=== PATIENT | female | born 1930 | race Caucasian/White ===

== ENCOUNTER 2016-06-29 17:59 | Inpatient (IN) | payer MEDICARE, BC ==
[~2016-06-29] VITALS: Ht 152.4 cm; Wt 73.5 kg
--- NOTE | 2016-06-29 18:00 | NUR ---
BIB RA FOR FEVER AND RIGHT LOWER LOBE INFILTRATION, PATIENT IS UNABLE TO AMBULATE, NO CHEST PAIN, NO RESPIRATORY DISTRESS, MD AT BEDSIDE UPON ARRIVAL, PATIENT IS A/O X3, WILL CONTINUE TO MONITOR CLOSELY.
[2016-06-29] MEDS ORDERED: IV NS 0.9% 500 ML BAG IV ONE (18:30)
[2016-06-29] MEDS ORDERED: IV SET PRIMARY 1 EA INFUS.SET MC ONE (18:41)
[2016-06-29] MEDS ORDERED: IV NS 0.9% 500 ML IV ONE (18:41)
[2016-06-29 18:44] LABS: BASOPHILS % (AUTO) 0.1 % (0.0-2.0); EOSINOPHILS # (AUTO) 0.3 /CMM (0.0-0.7); EOSINOPHILS % (AUTO) 2.9 % (0.0-6.0); HEMATOCRIT 37 % (33-45); HEMOGLOBIN 12.4 g/dL (11.5-14.8); LYMPHOCYTES # (AUTO) 0.8 /CMM (0.8-4.8); LYMPHOCYTES % (AUTO) 6.9 % (20.0-44.0); MEAN CORPUSCULAR HEMOGLOBIN 32 PG (26.0-33.0); MEAN CORPUSCULAR HGB CONC 33 g/dl (31.0-36.0); MEAN CORPUSCULAR VOLUME 94 fL (82-100); MONOCYTES # (AUTO) 1.4 /CMM (0.1-1.30); MONOCYTES % (AUTO) 12.8 % (2.0-12.0); NEUTROPHILS # (AUTO) 8.5 /CMM (1.8-8.9); NEUTROPHILS % (AUTO) 77.3 % (43.0-81.0); PLATELET COUNT (AUTO) 389 /CMM (150-450); RDW COEFFICIENT OF VARIATION 13.4 (11.5-15.0); RED BLOOD CELL COUNT(AUTO) 3.94 MIL/uL (4.0-5.2)
[2016-06-29] MEDS ORDERED: ALEN70TA3 GT (18:51)
[2016-06-29] MEDS ORDERED: MAG30ORA GT (18:51)
[2016-06-29] MEDS ORDERED: MULT-659 GT (18:51)
[2016-06-29] MEDS ORDERED: SIMV20TA6 GT (18:51)
[2016-06-29] MEDS ORDERED: OMEP10SU GT (18:51)
[2016-06-29] MEDS ORDERED: GEMF600T GT (18:51)
[2016-06-29] MEDS ORDERED: ACET650S26 GT (18:51)
[2016-06-29] MEDS ORDERED: AMIN30LI4 GT (18:51)
[2016-06-29] MEDS ORDERED: VENL37.55 GT (18:51)
[2016-06-29] MEDS ORDERED: TEMA15CA GT (18:51)
[2016-06-29] MEDS ORDERED: NUT.237L30 GT (18:51)
[2016-06-29] MEDS ORDERED: ONDA4TAB5 GT (18:51)
[2016-06-29] MEDS ORDERED: SODI1TAB3 GT (18:51)
[2016-06-29] MEDS ORDERED: POLY17PO4 GT (18:51)
[2016-06-29] MEDS ORDERED: ATEN25TA GT (18:51)
[2016-06-29] MEDS ORDERED: AMLO10TA2 GT (18:51)
[2016-06-29] MEDS ORDERED: ACET1TAB12 GT (18:51)
[2016-06-29 18:55] LABS: CALCIUM, SERUM 9.1 mg/dL (8.5-10.1); CREATININE 1.1 mg/dL (0.6-1.3); POTASSIUM 4.4 mmol/L (3.5-5.1)
--- NOTE | 2016-06-29 18:57 | NUR ---
CALLED NURSING SUP. FOR TELE BED
[2016-06-29 19:03] LABS: INR 0.96 (0.87-1.13); PROTHROMBIN TIME 10.3 SECS (9.5-12.7); TROPONIN I 0.024 ng/mL (0.00-0.056)
[2016-06-29 19:04] LABS: LACTIC ACID 0.7 mmol/L (0.4-2.0)
--- NOTE | 2016-06-29 19:06 | NUR ---
RECEIVED REPORT FROM DEEPTHI LU FOR CONTINUE OF CARE.
[2016-06-29 19:10] LABS: ALBUMIN 1.6 g/dL (3.4-5.0); BILIRUBIN,DIRECT 0.1 mg/dL (0.0-0.2); BILIRUBIN,TOTAL 0.3 mg/dL (0.2-1.0); TOTAL PROTEIN, SERUM 7.5 g/dL (6.4-8.2)
--- NOTE | 2016-06-29 19:10 | NUR ---
PT NTOED WITH GTUBE, INTACT AND PATENT. NO S/S INFECTION. NO RESIDUALS NOTED.
[2016-06-29] MEDS ORDERED: ACETAMINOPHEN ES 500 MG TABLET ONE (19:21)
[2016-06-29] MEDS ORDERED: ACETAMINOPHEN ES 500 MG TABLET GT ONE (19:30)
[2016-06-29] MEDS ORDERED: LEVOFLOXACIN 750 MG /D5W 150ML 150 ML IV ONE ×2 (19:30→19:58)
[2016-06-29] MEDS ORDERED: PIPERACILLIN /TAZOBACTAM 3.375 G in IV D5W 50 ML IV ONE (19:30)
[2016-06-29] MEDS ORDERED: ACETAMINOPHEN ES 500 MG TABLET PO ONE (19:30)
--- NOTE | 2016-06-29 19:33 | NUR ---
URINE COLLECTED. CALLED LAB FOR ULTRASONIC CLEANER/
[2016-06-29] MEDS ORDERED: ACETAMINOPHEN 650 MG/20.3 ML UDC ONE (19:35)
[2016-06-29] MEDS ORDERED: IV SET PRIMARY PUMP SET 1 EA INFUS.SET MC ONE ×2 (19:40→19:58)
[2016-06-29] MEDS ORDERED: PIPERACILLIN /TAZOBACTAM 3.375 G VIAL IV ONE (19:40)
[2016-06-29] MEDS ORDERED: IV D5W 50 ML IV ONE (19:40)
--- NOTE | 2016-06-29 19:51 | NUR ---
PT ASSIGNED TO [facility] 312-2
[2016-06-29] MEDS ORDERED: ACETAMINOPHEN SUSP 80 MG/0.8 ML BOTTLE GT ONE (20:00)
--- NOTE | 2016-06-29 20:00 | NUR ---
REPROT GIVEN TO DEEPTHI TONG FOR 312-2
--- NOTE | 2016-06-29 20:21 | NUR ---
PT TRANSFERED PER ACLS PROTOCOL.
--- NOTE | 2016-06-29 20:21 | NUR ---
TELE/RN RECEIVE PATIENT FROM [facility]. PATIENT IS AWAKE, ALERT, APPEAR COMFORTABLE, NO DISTRESS NOTED. UNABLE TO OBTAIN ADMISSION INFORMATIONS FROM THE PATIENT THE PATIENT DOES NOT ANSWER TO QUESTIONS. MADE COMFORTABLE IN BED, SKIN ASSESSMENT DONE, PHOTOS TAKEN. WILL MONITOR. FALL PRECAUTION.
[2016-06-29 20:30] VITALS: BP 144/64
[2016-06-29] MEDS ORDERED: FEE PK DOSING 1 MIN EA MC ONE (20:57)
[2016-06-29 21:09] LABS: APPEARANCE,URINE SL CLOUDY (CLEAR); BILIRUBIN,URINE NEGATIVE (NEGATIVE); BLOOD, URINE 1+ Ery/uL (NEGATIVE); COLOR,URINE YELLOW (YELLOW); KETONES,URINE NEGATIVE (NEGATIVE); LEUKOCYTE ESTERASE ,URINE NEGATIVE (NEGATIVE); NITRITE, URINE NEGATIVE (NEGATIVE); PROTEIN,URINE 3+ mg/dl (NEGATIVE); UGLUCOSE NEGATIVE (NEGATIVE); UROBILINOGEN,URINE 0.2 EU/dL (0.2)
[2016-06-29 21:24] LABS: ADD URINE CULTURE YES; BACTERIA,URINE Many /HPF (None Seen); SQUAMOUS EPITHELIAL CELL,UR Few /HPF (None Seen); WBC,URINE 0-2 /HPF (0-3)
[2016-06-29] MEDS ORDERED: GEMFIBROZIL 600 MG TABLET GT SCH (22:00)
[2016-06-29] MEDS ORDERED: SECONDARY IV SET 1 EA INFUS.SET MC ONE (22:05)
[2016-06-29] MEDS ORDERED: IV NS 0.9% 250 ML IV ONE (22:05)
[2016-06-29] MEDS ORDERED: SIMVASTATIN 20 MG TABLET ONE (22:14)
[2016-06-29] MEDS: VANCOMYCIN 0.75 GM in IV D5W 250 ML IV SCH (22:15)
[2016-06-29] MEDS: SIMVASTATIN 20 MG TABLET GT SCH (22:20)
[2016-06-29] MEDS ORDERED: GLYTROL 1,000 ML BAG ONE (22:53)
[2016-06-30] VITALS: BP 157/72
--- NOTE | 2016-06-30 | NUR ---
TELE/RN PATIENT IS SLEEPING, AROUSABLE, APPEAR COMFORTABLE, NO SIGNS OF DISTRESS NOTED, CALL LIGHT IN REACH. WILL CONTINUE TO MONITOR.
[2016-06-30 04:00] VITALS: BP 135/58
[2016-06-30] MEDS ORDERED: SECONDARY IV SET 1 EA INFUS.SET MC ONE (05:09)
[2016-06-30] MEDS: PIPERACILLIN /TAZOBACTAM 3.375 G in IV D5W 50 ML IV SCH ×3 (05:38→17:22)
--- NOTE | 2016-06-30 06:10 | NUR ---
TELE/RN PATIENT STILL SLEEPING, AROUSABLE, NO DISTRESS NOTED. ALL NEEDS ATTENDED AT THIS TIME. WILL CONTINUE TO MONITOR.
[2016-06-30 06:57] VITALS: BP 153/64
[2016-06-30 06:59] LABS: BASOPHILS % (AUTO) 0.3 % (0.0-2.0); EOSINOPHILS # (AUTO) 0.6 /CMM (0.0-0.7); EOSINOPHILS % (AUTO) 6.1 % (0.0-6.0); HEMATOCRIT 34 % (33-45); HEMOGLOBIN 11.3 g/dL (11.5-14.8); LYMPHOCYTES # (AUTO) 0.7 /CMM (0.8-4.8); LYMPHOCYTES % (AUTO) 6.8 % (20.0-44.0); MEAN CORPUSCULAR HEMOGLOBIN 32 PG (26.0-33.0); MEAN CORPUSCULAR HGB CONC 34 g/dl (31.0-36.0); MEAN CORPUSCULAR VOLUME 96 fL (82-100); MONOCYTES # (AUTO) 1.2 /CMM (0.1-1.30); NEUTROPHILS # (AUTO) 7.4 /CMM (1.8-8.9); NEUTROPHILS % (AUTO) 74.8 % (43.0-81.0); PLATELET COUNT (AUTO) 364 /CMM (150-450); RDW COEFFICIENT OF VARIATION 13.4 (11.5-15.0); RED BLOOD CELL COUNT(AUTO) 3.51 MIL/uL (4.0-5.2); WHITE BLOOD COUNT (AUTO) 9.8 K/uL (4.3-11.0)
[2016-06-30 07:13] LABS: BILIRUBIN,TOTAL 0.2 mg/dL (0.2-1.0); CALCIUM, SERUM 8.2 mg/dL (8.5-10.1); MAGNESIUM 2.4 mg/dL (1.8-2.4); PHOSPHORUS 3.6 mg/dL (2.5-4.9); POTASSIUM 4.3 mmol/L (3.5-5.1); TOTAL PROTEIN, SERUM 6.5 g/dL (6.4-8.2)
[2016-06-30 07:19] LABS: ALBUMIN 1.3 g/dL (3.4-5.0)
--- NOTE | 2016-06-30 07:20 | NUR ---
TELE/JEWELRY ENGRAVER CALLED, RE: ALBUMIN 1.3. ENDORSED TO DEEPTHI ARENAS.
--- NOTE | 2016-06-30 08:00 | NUR ---
MS RN NOTES PATIENT IN BED RESTING NO SOB OR ACUTE DISTRESS NOTED. BED IN LOW LOCKED POSITION CALL LIGHT WITHIN REACH WILL CONTINUE TO MONITOR.
[2016-06-30] MEDS ORDERED: GLYTROL 1,000 ML BAG GT SCH (09:00)
[2016-06-30] MEDS ORDERED: ACETAMINOPHEN 650 MG/20.3 ML UDC GT PRN (09:00)
[2016-06-30] MEDS ORDERED: ACETAMINOPHEN W/ CODEINE#3 1 EA TABLET GT PRN (09:00)
[2016-06-30] MEDS ORDERED: ALENDRONATE 70 MG TABLET GT SCH (09:00)
[2016-06-30] MEDS ORDERED: GEMFIBROZIL 600 MG TABLET GT SCH (09:00)
[2016-06-30] MEDS ORDERED: OMEPRAZOLE MAGNESIUM 10 MG GT SCH (09:00)
[2016-06-30] MEDS ORDERED: MAG HYDROX/AL HYDROX/SIMETH 30 ML UDC GT PRN (09:00)
[2016-06-30] MEDS ORDERED: TEMAZEPAM 15 MG CAPSULE GT PRN (09:00)
[2016-06-30] MEDS ORDERED: GLYTROL 1,000 ML BAG GT PRN ×2 (09:07)
[2016-06-30] MEDS: PROSOURCE / PROSTAT (PYXIS) 30 ML UDC GT SCH ×2 (09:24→17:17)
[2016-06-30] MEDS: POLYETHYLENE GLYCOL 3350 17 GM POWD.PACK GT SCH (09:25)
[2016-06-30] MEDS: SODIUM CHLORIDE 1000 MG TABLET.SOL GT SCH ×2 (09:25→17:15)
[2016-06-30] MEDS: AMLODIPINE BESYLATE 10 MG TABLET GT SCH (09:26)
[2016-06-30] MEDS: ATENOLOL 25 MG TABLET GT SCH (09:26)
[2016-06-30] MEDS: VENLAFAXINE XR 37.5 MG CAP.SR.24H GT SCH (09:27)
[2016-06-30] MEDS: PANTOPRAZOLE 40 MG/PACK PACK GT SCH (09:27)
[2016-06-30] MEDS ORDERED: Z GUARD REMEDY 2 OZ OINT TP PRN (09:30)
[2016-06-30] MEDS ORDERED: ONDANSETRON 4 MG TAB.RAPDIS GT PRN (09:30)
--- NOTE | 2016-06-30 09:34 | NUR ---
WOUND CARE CONSULT: PATIENT SEEN AND SKIN ASSESSMENT DONE. PATIENT ALERT, CAN BECOME COMBATIVE BY SWINGING HER ARMS AND KICKING WHEN TOUCHED. PATIENT HOWEVER IS UNABLE TO TURN AND REPOSITION SELF IN BED, INCONTINENT, ART Chun, NURSING STAFF ORDERED [place]FO ISOFLEX KRISTEN BED AND WILL PLACE WHEN AVAILABLE IN THE UNIT. SEE TODAY'S SKIN ASSESSMENT IN PCS ALONG WITH RECOMMENDATIONS DISCUSSED WITH NURSING STAFF INCLUDING PRESSURE PREVENTION AND MOISTURE PROTECTION MEASURES ORDERED. MD IN AGREEMENT WITH PLAN OF CARE. Addendum: 06/30/16 at 0940 by MONCHO PALACIO WNDNU Amended: Links added.
[2016-06-30] MEDS: Z GUARD REMEDY 2 OZ OINT TP SCH ×2 (11:33→17:20)
[2016-06-30] MEDS: HYDROGEL DRESSING 90 GM TUBE TP SCH (11:33)
--- NOTE | 2016-06-30 12:00 | NUR ---
MS RN NOTES PATIENT NOTED WITH SOB AND LABORED BREATHING O2 SATURATING AT 95% PATIENT ALERT, ORIENTED RT AT BEDSIDE. CALLED DR. HODGSON WAITING FOR CALL BACK.
--- NOTE | 2016-06-30 12:30 | NUR ---
MS RN NOTES SPOKE TO DR. HODGSON ORDERS FOR PRN BREATHING TREATMENT, RT NOTIFIED ADMINISTERING BREATHING TREATMENT.
[2016-06-30] MEDS: ALBUTEROL FS 2.5 MG/0.5 ML VIAL.NEB NEB PRN ×3 (12:43→22:28)
[2016-06-30] MEDS: IPRATROPIUM NEB FS 0.5 MG/2.5 ML AMPUL.NEB NEB PRN ×3 (12:43→22:28)
--- NOTE | 2016-06-30 13:00 | NUR ---
MS RN NOTES PATIENT NOTED WITH IMPROVED BREATHING, NO SOB OR ACUTE DISTRESS NOTED. WILL CONTINUE TO MONITOR.
--- NOTE | 2016-06-30 14:00 | NUR ---
MS RN NOTES PATIENT SEEN AND EVALUATED BY DR. HODGSON.
[2016-06-30 16:00] VITALS: BP 135/52
[2016-06-30] MEDS ORDERED: ENOXAPARIN SODIUM 40 MG/0.4 ML DISP.SYRIN SQ SCH (16:00)
[2016-06-30] MEDS: LACTOBACILLUS RHAMNOSUS GG 1 EACH CAP.SPRINK PO SCH (17:15)
[2016-06-30] MEDS: ENOXAPARIN SODIUM 30 MG/0.3 ML DISP.SYRIN SQ SCH (17:16)
--- NOTE | 2016-06-30 18:43 | NUR ---
MS RN NOTES PATIENT ALERT ORIENTED NO SOB OR ACUTE DISTRESS NOTED. ALL DUE MEDICATIONS GIVEN. ALL NEEDS MET WILL ENDORSE TO PM SHIFT CATIA.
--- NOTE | 2016-06-30 19:15 | NUR ---
RN INITIAL NOTES RECEIVED PATIENT IN BED, AWAKE AND ALERT X2. PATIENT DENIES PAIN AND DISCOMFORT. NOTED PATIENT WITH OCCASIONAL COUGHING, WITH COARSE VOICE, NO EXPIRATORY WHEEZING NOTED. PATIENT'S BREATH SOUNDS ARE DIMINISHED. PATIENT ABLE TO EXPECTORATE MINIMAL AMOUNT OF THICK, YELLOW SPUTUM. KEPT PATIENT ON 2LPM OF O2 VIA, HOB ELEVATED PER PATIENT'S TOLERANCE. L AC G20, FLUSHED AND KEPT PATENT, NO SIGNS OF INFILTRATION, ON SL. GT FLUSHED AND KEPT PATENT. PATIENT'S NEEDS ANTICIPATED AND MET. SAFETY AND COMFORT ENSURED. BED IN LOW AND LOCKED POSITION. CALL LIGHT IN REACH. WILL MONITOR CLOSELY.
[2016-06-30 20:00] VITALS: BP 144/88
[2016-06-30] MEDS: VANCOMYCIN 0.75 GM in IV D5W 250 ML IV SCH (21:41)
[2016-06-30] MEDS: SIMVASTATIN 20 MG TABLET GT SCH (21:41)
[2016-06-30] MEDS: GLYTROL 1,000 ML BAG GT PRN (21:42)
[2016-06-30] MEDS ORDERED: SIMVASTATIN 20 MG TABLET GT SCH (22:00)
--- NOTE | 2016-06-30 23:00 | NUR ---
RN NOTES PATIENT NOTED TO BE FREQUENTLY COUGHING, NONPRODUCTIVE AND PATIENT COMPLAINING OF CHEST DISCOMFORT WITH COUGHING. BREATHING TREATMENT PRN GIVEN BY RT, WITH HELP FOR THE PATIENT. PM CARE RENDERED. PATIENT KEPT CLEAN AND DRY. SAFETY AND COMFORT ENSURED. CALL LIGHT IN REACH.
[2016-07-01] MEDS: PIPERACILLIN /TAZOBACTAM 3.375 G in IV D5W 50 ML IV SCH ×5 (00:48→23:29)
--- NOTE | 2016-07-01 01:12 | NUR ---
RN NOTES PATIENT IN BED, SLEEPING COMFORTABLY. NO ACUTE RESPIRATORY DISTRESS NOTED. PATIENT WITH NO LABORED BREATHING NOTED. HOB ELEVATED TOLERATED. SAFETY AND COMFORT ENSURED. CALL LIGHT IN REACH.
--- NOTE | 2016-07-01 06:31 | NUR ---
RN CLOSING NOTES PATIENT IN BED, SLEEPING COMFORTABLY. PATIENT NOT IN ANY ACUTE CARDIAC/RESPIRATORY DISTRESS. NO ACUTE CHANGES OBSERVED OVERNIGHT. GTF INFUSING ORDERED, NO GASTRIC RESIDUAL, TOLERATING WELL. ALL DUE MEDS GIVEN ORDERED. AM LABS DRAWN. PATIENT'S NEEDS ANTICIPATED AND MET. SAFETY AND COMFORT ENSURED. BED IN LOW AND LOCKED POSITION. BED ALARM IN PLACE. CALL LIGHT IN REACH. WILL ENDORSE ACCORDINGLY FOR CONTINUITY OF CARE.
--- NOTE | 2016-07-01 07:31 | NUR ---
RN MS NOTES PATIENT IN BED, ALERT AND ORIENTED X2, VERBALLY RESPONSIVE, AM CARE RENDERED, NO S/SX OF ACUTE DISTRESS AT THIS TIME, HOB ELEVATED FOR ASPIRATION PRECAUTION, ON GTF AT 80ML/HR, INFUSING WELL, PLACEMENT VERIFIED WITH 10CC OF RESIDUAL, SAFETY MEASURES IN PLACED, BED ALARM ON, LOW BED/LOCKED POSITION, CALL LIGHT WITHIN REACH, WILL CONTINUE TO MONITOR.
[2016-07-01 07:44] LABS: BASOPHILS % (AUTO) 0.2 % (0.0-2.0); EOSINOPHILS # (AUTO) 0.3 /CMM (0.0-0.7); EOSINOPHILS % (AUTO) 3.9 % (0.0-6.0); HEMATOCRIT 32 % (33-45); HEMOGLOBIN 10.7 g/dL (11.5-14.8); LYMPHOCYTES # (AUTO) 0.7 /CMM (0.8-4.8); LYMPHOCYTES % (AUTO) 8.7 % (20.0-44.0); MEAN CORPUSCULAR HEMOGLOBIN 32 PG (26.0-33.0); MEAN CORPUSCULAR HGB CONC 33 g/dl (31.0-36.0); MEAN CORPUSCULAR VOLUME 95 fL (82-100); MONOCYTES % (AUTO) 12.3 % (2.0-12.0); NEUTROPHILS # (AUTO) 6.3 /CMM (1.8-8.9); NEUTROPHILS % (AUTO) 74.9 % (43.0-81.0); PLATELET COUNT (AUTO) 358 /CMM (150-450); RDW COEFFICIENT OF VARIATION 13.7 (11.5-15.0); RED BLOOD CELL COUNT(AUTO) 3.37 MIL/uL (4.0-5.2); WHITE BLOOD COUNT (AUTO) 8.4 K/uL (4.3-11.0)
[2016-07-01 08:00] VITALS: BP 125/59
[2016-07-01 08:11] LABS: CALCIUM, SERUM 8.7 mg/dL (8.5-10.1); CREATININE 1.1 mg/dL (0.6-1.3); MAGNESIUM 2.4 mg/dL (1.8-2.4); PHOSPHORUS 2.9 mg/dL (2.5-4.9); POTASSIUM 3.9 mmol/L (3.5-5.1)
[2016-07-01] MEDS: PROSOURCE / PROSTAT (PYXIS) 30 ML UDC GT SCH ×2 (08:41→17:14)
[2016-07-01] MEDS: VENLAFAXINE XR 37.5 MG CAP.SR.24H GT SCH (08:41)
[2016-07-01] MEDS: POLYETHYLENE GLYCOL 3350 17 GM POWD.PACK GT SCH (08:41)
[2016-07-01] MEDS: PANTOPRAZOLE 40 MG/PACK PACK GT SCH (08:42)
[2016-07-01] MEDS: MULTIVIT, IRON, MIN NO. 8, FA 1 TAB TABLET GT SCH (08:42)
[2016-07-01] MEDS: SODIUM CHLORIDE 1000 MG TABLET.SOL GT SCH ×2 (08:42→17:14)
[2016-07-01] MEDS: AMLODIPINE BESYLATE 10 MG TABLET GT SCH (08:42)
[2016-07-01] MEDS: ATENOLOL 25 MG TABLET GT SCH (08:42)
[2016-07-01] MEDS: LACTOBACILLUS RHAMNOSUS GG 1 EACH CAP.SPRINK PO SCH ×2 (08:42→17:14)
[2016-07-01] MEDS: Z GUARD REMEDY 2 OZ OINT TP SCH ×2 (08:43→17:14)
[2016-07-01] MEDS: HYDROGEL DRESSING 90 GM TUBE TP SCH (08:43)
[2016-07-01] MEDS ORDERED: SECONDARY IV SET 1 EA INFUS.SET MC ONE (11:32)
--- NOTE | 2016-07-01 14:00 | NUR ---
RN MS NOTES PATIENT SAT ON THE CHAIR, TOLERATED WELL, BREATHING EVEN AND UNLABORED, SPO2 > 92%, DENIES PAIN OR DISCOMFORT AT THIS TIME, NOTED WITH PRODUCTIVE COUGHING, YELLOW THICK MUCUS. PATIENT IN STABLE CONDITION, AFEBRILE, SAFETY MEASURES IN PLACED, CALL LIGHT PLACED WITHIN REACH.
[2016-07-01 16:00] VITALS: BP 134/71
[2016-07-01] MEDS: ENOXAPARIN SODIUM 30 MG/0.3 ML DISP.SYRIN SQ SCH (17:18)
--- NOTE | 2016-07-01 19:11 | NUR ---
RN MS NOTES PATIENT IN BED, NO SIGNIFICANT CHANGES THIS SHIFT, NO SOB, PIV LEFT AC, PATENT AND INTACT, TURNED AND REPOSITIONED, WOUND TREATMENT RENDERED, ON ISOFLEX BED, DENIES PAIN OR DISCOMFORT AT THIS TIME, SAFETY MEASURES IN PLACED, GTF TURNED OFF AT THIS TIME, HOB ELEVATED, CALL LIGHT WITHIN REACH, WILL ENDORSE TO RING STAMPER FOR CATIA.
[2016-07-01 20:00] VITALS: BP 149/57
[2016-07-01] MEDS: VANCOMYCIN 0.75 GM in IV D5W 250 ML IV SCH (21:48)
[2016-07-01] MEDS: SIMVASTATIN 20 MG TABLET GT SCH (21:56)
[2016-07-02] MEDS: GLYTROL 1,000 ML BAG GT PRN
[2016-07-02] MEDS: PIPERACILLIN /TAZOBACTAM 3.375 G in IV D5W 50 ML IV SCH ×3 (05:30→17:11)
--- NOTE | 2016-07-02 07:20 | NUR ---
RN MS NOTES PATIENT IN BED, ALERT AND ORIENTED, HOB ELEVATED, GTF ONGOING AND TOLERATING WELL, NO RESIDUAL, NO SOB AT THIS TIME, ON O2 @ 2LPM VIA NC WITH SPO2 96%, NO S/SX OF PAIN OR DISTRESS AT THIS TIME, ON ISOFLEX BED, ASSISTED WITH TURNING AND REPOSITIONING, SAFETY MEASURES IN PLACED, CALL LIGHT WITHIN REACH, WILL CONTINUE TO MONITOR.
[2016-07-02 07:32] LABS: BASOPHILS % (AUTO) 0.4 % (0.0-2.0); EOSINOPHILS # (AUTO) 0.6 /CMM (0.0-0.7); EOSINOPHILS % (AUTO) 7.3 % (0.0-6.0); HEMATOCRIT 33 % (33-45); HEMOGLOBIN 10.9 g/dL (11.5-14.8); LYMPHOCYTES # (AUTO) 0.8 /CMM (0.8-4.8); LYMPHOCYTES % (AUTO) 9.4 % (20.0-44.0); MEAN CORPUSCULAR HEMOGLOBIN 32 PG (26.0-33.0); MEAN CORPUSCULAR HGB CONC 34 g/dl (31.0-36.0); MEAN CORPUSCULAR VOLUME 95 fL (82-100); MONOCYTES # (AUTO) 0.9 /CMM (0.1-1.30); MONOCYTES % (AUTO) 10.8 % (2.0-12.0); NEUTROPHILS # (AUTO) 6.2 /CMM (1.8-8.9); NEUTROPHILS % (AUTO) 72.1 % (43.0-81.0); PLATELET COUNT (AUTO) 401 /CMM (150-450); RDW COEFFICIENT OF VARIATION 13.6 (11.5-15.0); RED BLOOD CELL COUNT(AUTO) 3.41 MIL/uL (4.0-5.2); WHITE BLOOD COUNT (AUTO) 8.6 K/uL (4.3-11.0)
[2016-07-02 08:00] VITALS: BP 145/65
[2016-07-02 08:03] LABS: BILIRUBIN,TOTAL 0.1 mg/dL (0.2-1.0); CALCIUM, SERUM 8.9 mg/dL (8.5-10.1); CREATININE 1.1 mg/dL (0.6-1.3); MAGNESIUM 2.3 mg/dL (1.8-2.4); PHOSPHORUS 2.8 mg/dL (2.5-4.9); POTASSIUM 3.7 mmol/L (3.5-5.1); TOTAL PROTEIN, SERUM 6.4 g/dL (6.4-8.2)
[2016-07-02 08:17] LABS: ALBUMIN 1.2 g/dL (3.4-5.0)
[2016-07-02 08:18] VITALS: BP 145/65
[2016-07-02] MEDS: PROSOURCE / PROSTAT (PYXIS) 30 ML UDC GT SCH ×2 (08:22→16:31)
[2016-07-02] MEDS: VENLAFAXINE XR 37.5 MG CAP.SR.24H GT SCH (08:22)
[2016-07-02] MEDS: SODIUM CHLORIDE 1000 MG TABLET.SOL GT SCH ×2 (08:23→16:31)
[2016-07-02] MEDS: ATENOLOL 25 MG TABLET GT SCH (08:23)
[2016-07-02] MEDS: MULTIVIT, IRON, MIN NO. 8, FA 1 TAB TABLET GT SCH (08:23)
[2016-07-02] MEDS: PANTOPRAZOLE 40 MG/PACK PACK GT SCH (08:23)
[2016-07-02] MEDS: POLYETHYLENE GLYCOL 3350 17 GM POWD.PACK GT SCH (08:23)
[2016-07-02] MEDS: AMLODIPINE BESYLATE 10 MG TABLET GT SCH (08:23)
[2016-07-02] MEDS: LACTOBACILLUS RHAMNOSUS GG 1 EACH CAP.SPRINK PO SCH (08:24)
[2016-07-02] MEDS: HYDROGEL DRESSING 90 GM TUBE TP SCH (08:24)
[2016-07-02] MEDS: Z GUARD REMEDY 2 OZ OINT TP SCH ×2 (08:24→16:32)
--- NOTE | 2016-07-02 09:00 | NUR ---
RN MS NOTES DR. NAVARRO MADE AWARE OF CRITICALLY LOW ALBUMIN, NO NEW ORDER AT THIS TIME.
--- NOTE | 2016-07-02 10:19 | NUR ---
RN MS NOTES PATIENT REPOSITIONED COMFORTABLY, HOB ELEVATED, BREATHING APPEARS TO BE SLIGHTLY LABORED, SPO2 AT 95% AT 3LPM VIA NC, RT CAME AND ASSESSED THE PATIENT, OFFERED BREATHING TX, BUT PATIENT REFUSED, RT STATED PATIENT DOESN'T NEED BREATHING TX AT THIS TIME, WILL CONTINUE TO MONITOR.
[2016-07-02] MEDS ORDERED: SECONDARY IV SET 1 EA INFUS.SET MC ONE (12:06)
[2016-07-02] MEDS: GUAIFENESIN/D-METHORPHAN HB 5 ML UDC GT PRN (13:01)
[2016-07-02] MEDS: LACTOBACILLUS RHAMNOSUS GG 1 EACH CAP.SPRINK GT SCH (16:31)
[2016-07-02] MEDS: ENOXAPARIN SODIUM 30 MG/0.3 ML DISP.SYRIN SQ SCH (16:32)
[2016-07-02 17:04] VITALS: BP 162/67
--- NOTE | 2016-07-02 18:27 | NUR ---
RN MS NOTES PATIENT WITH NO SIGNIFICANT CHANGE THIS SHIFT, CXR RESULT STILL PENDING, STILL NOTED WITH COUGHING, HOB ELEVATED AT ALL TIMES, NO S/SX OF PAIN OR DISCOMFORT, TURNED AND REPOSITIONED, WOUND TREATMENT PROVIDED, ALL DUE MEDS GIVEN ORDERED, CALL LIGHT WITHIN REACH, WILL ENDORSE TO LOCK UP WORKER FOR CATIA.
[2016-07-02 20:00] VITALS: BP 157/59
[2016-07-02] MEDS: SIMVASTATIN 20 MG TABLET GT SCH (21:12)
[2016-07-02] MEDS: VANCOMYCIN 0.75 GM in IV D5W 250 ML IV SCH (21:12)
--- NOTE | 2016-07-02 21:37 | NUR ---
MS RN INITIAL NOTE RECEIVED PT SLEEPING BUT EASILY AROUSED, NO SIGNS OF PAIN OR RESPIRATORY DISTRESS NOTED DURING PHYSICAL ASSESSMENT, G-TUBE INTACT AN PATENT WITH NO RESIDUAL PRESENT, HOB ELEVATED 30 DEGREES OR MORE TO PREVENT ASPIRATION, PT WILL BE REPOSITIONED EVERY 2 HOURS TO PREVENT SKIN BREAKDOWN, SAFETY MEASURES IN PLACE, WILL ATTEND TO NEEDS DURING HOURLY ROUNDS AND NEEDED.
[2016-07-03] MEDS: PIPERACILLIN /TAZOBACTAM 3.375 G in IV D5W 50 ML IV SCH ×4 (01:00→17:41)
[2016-07-03] MEDS: GUAIFENESIN/D-METHORPHAN HB 5 ML UDC GT PRN ×2 (01:32→16:42)
[2016-07-03] MEDS: GLYTROL 1,000 ML BAG GT PRN ×2 (06:07→22:41)
--- NOTE | 2016-07-03 06:28 | NUR ---
PT REMAINED STABLE DURING ADVISORY SERVICES ASSOCIATE, NO SIGNIFICANT CHANGES NOTED, PT CLEAN/DRY AND COMFORTABLE, NEEDS ANTICIPATED AND ATTENDED TO, WILL ENDORSE TO INCOMING NURSE FOR CATIA.
[2016-07-03 07:15] LABS: BASOPHILS % (AUTO) 0.2 % (0.0-2.0); EOSINOPHILS # (AUTO) 0.5 /CMM (0.0-0.7); EOSINOPHILS % (AUTO) 5.5 % (0.0-6.0); HEMATOCRIT 37 % (33-45); HEMOGLOBIN 12.3 g/dL (11.5-14.8); LYMPHOCYTES # (AUTO) 0.8 /CMM (0.8-4.8); LYMPHOCYTES % (AUTO) 8.6 % (20.0-44.0); MEAN CORPUSCULAR HEMOGLOBIN 32 PG (26.0-33.0); MEAN CORPUSCULAR HGB CONC 34 g/dl (31.0-36.0); MEAN CORPUSCULAR VOLUME 95 fL (82-100); MONOCYTES # (AUTO) 0.7 /CMM (0.1-1.30); NEUTROPHILS # (AUTO) 7.2 /CMM (1.8-8.9); NEUTROPHILS % (AUTO) 77.7 % (43.0-81.0); PLATELET COUNT (AUTO) 444 /CMM (150-450); RED BLOOD CELL COUNT(AUTO) 3.85 MIL/uL (4.0-5.2); WHITE BLOOD COUNT (AUTO) 9.3 K/uL (4.3-11.0)
--- NOTE | 2016-07-03 07:20 | NUR ---
MS RN NOTES RECEIVED PATIENT IN BED, SLEEPING. AROUSES EASILY. ON OXYGEN AT 2L/MIN VIA NC, NO SOB NOTED. ON GTUBE FEEDING GYTROL AT 80ML/HR, PER NIGHT RN REPORT FEEDING FOR X12 HR. MAINTAIN HOB ELEVATED. NO C/O PAIN OR ANY DISCOMFORT. CALL LIGHT WITHIN REACH. WILL CONT TO MONITOR.
[2016-07-03 07:26] LABS: BILIRUBIN,TOTAL 0.2 mg/dL (0.2-1.0); CALCIUM, SERUM 9.7 mg/dL (8.5-10.1); MAGNESIUM 2.1 mg/dL (1.8-2.4); PHOSPHORUS 3.8 mg/dL (2.5-4.9); POTASSIUM 3.5 mmol/L (3.5-5.1); TOTAL PROTEIN, SERUM 6.9 g/dL (6.4-8.2)
[2016-07-03 07:29] LABS: ALBUMIN 1.3 g/dL (3.4-5.0)
[2016-07-03 08:00] VITALS: BP 160/72
[2016-07-03 08:37] VITALS: BP 160/72
[2016-07-03] MEDS: LACTOBACILLUS RHAMNOSUS GG 1 EACH CAP.SPRINK GT SCH ×2 (08:37→16:42)
[2016-07-03] MEDS: PANTOPRAZOLE 40 MG/PACK PACK GT SCH (08:37)
[2016-07-03] MEDS: PROSOURCE / PROSTAT (PYXIS) 30 ML UDC GT SCH ×2 (08:38→16:42)
[2016-07-03] MEDS: AMLODIPINE BESYLATE 10 MG TABLET GT SCH (08:39)
[2016-07-03] MEDS: VENLAFAXINE XR 37.5 MG CAP.SR.24H GT SCH (08:39)
[2016-07-03] MEDS: POLYETHYLENE GLYCOL 3350 17 GM POWD.PACK GT SCH (08:39)
[2016-07-03] MEDS: ATENOLOL 25 MG TABLET GT SCH (08:41)
[2016-07-03] MEDS: MULTIVIT, IRON, MIN NO. 8, FA 1 TAB TABLET GT SCH (08:41)
[2016-07-03] MEDS: Z GUARD REMEDY 2 OZ OINT TP SCH ×2 (08:57→17:42)
--- NOTE | 2016-07-03 10:44 | NUR ---
PATIENT IS SEEN BY TODAY, RECOMMENDS [facility] SOFT FINE CHOPPED FINE DIET FOR ORAL GRATIFICATION ONLY.
--- NOTE | 2016-07-03 11:00 | NUR ---
PATIENT IS SEEN BY DR. ILANA WHIPPLE TODAY, PER MD USE ZINC TO BUTTOCK AND NOT HYDROGEL NOTED AND ACKNOWLEDGED.
[2016-07-03] MEDS: HYDROGEL DRESSING 90 GM TUBE TP SCH (11:14)
[2016-07-03] MEDS: SODIUM CHLORIDE 1000 MG TABLET.SOL GT SCH (11:15)
--- NOTE | 2016-07-03 12:04 | NUR ---
ELEVATED SODIUM LEVEL 149. PATIENT IS ON SODIUM CHLORIDE 1000MG VIA GT BID. INFORMED DR. GOLDSMITH ORDERED TO CHANGE IT ONCE A DAY, NOTED AND ACKNOWLEDGED.
--- NOTE | 2016-07-03 12:27 | NUR ---
LOW ALBUMIN LEVEL 1.[address] GOLDSMITH WITH NO NEW ORDERS AT THIS TIME. MD ORDERED PT/OT TO SEE THE PATIENT NOTED AND ACKNOWLEDGED.
[2016-07-03] MEDS ORDERED: SECONDARY IV SET 1 EA INFUS.SET MC ONE (15:07)
[2016-07-03] MEDS: VANCOMYCIN 0.75 GM in IV D5W 250 ML IV SCH (15:08)
[2016-07-03] MEDS: ZINC OXIDE 30 GM TUBE TP SCH (15:08)
[2016-07-03] MEDS ORDERED: IV NS 0.9% 250 ML IV ONE (15:14)
[2016-07-03 16:00] VITALS: BP 154/71
[2016-07-03] MEDS: ENOXAPARIN SODIUM 30 MG/0.3 ML DISP.SYRIN SQ SCH (16:43)
[2016-07-03 17:24] VITALS: BP 154/71
--- NOTE | 2016-07-03 18:20 | NUR ---
MS RN CLOSING NOTES PATIENT IN BED, A/O X1. NOT IN DISTRESS. ON ANTIBIOTIC WITH NO ADVERSE REACTION, AFEBRILE. PATIENT HAD BOWEL MOVEMENT TODAY, PERINEAL CARE PROVIDED. TURN AND REPOSITION. PATIENT WITH EPISODE OF COUGH, MEDICATED WITH COUGH LIQUIDS PRN WITH HELPED. CALL LIGHT WITHIN REACH. GTUBE FEEDING WILL BE TURNED ON AT 10PM AND WILL BE TURNED OFF AT 10AM PER 12 HOURS FEEDING INSTRUCTION, LAB IN AM. WILL ENDORSE TO FISH HATCHERY WORKER RN FOR CONTINUITY OF CARE.
--- NOTE | 2016-07-03 19:30 | NUR ---
MS RN INITIAL NOTE RECEIVED PT AWAKE AND ALERT, ORIENTED X1-2, NO SIGNS OF PAIN OR RESPIRATORY DISTRESS NOTED DURING PHYSICAL ASSESSMENT, ON ENTERAL FEEDING GLYTROL AT 80ML/HR, TO BE INITIATED AT 10PM, NO RESIDUAL FOUND CURRENTLY, ABDOMEN IS SOFT AND NON DISTENDED, ACCORDING TO AM NURSE ALBUMIN IS 1.3 MD AWARE AND NO NEW ORDERS RECEIVED, CONTINUE MONITORING, PT WILL BE KEPT CLEAN/DRY AND COMFORTABLE, SAFETY MEASURES WILL BE MAINTAINED AT ALL TIMES, NEEDS WILL BE ANTICIPATED AND ATTENDED TO DURING HOURLY ROUNDS AND NEEDED.
[2016-07-03 20:23] VITALS: BP 157/65
[2016-07-03] MEDS: SIMVASTATIN 20 MG TABLET GT SCH (21:39)
[2016-07-04] MEDS: PIPERACILLIN /TAZOBACTAM 3.375 G in IV D5W 50 ML IV SCH ×3 (00:45→13:41)
[2016-07-04 04:43] VITALS: BP 141/71
--- NOTE | 2016-07-04 06:38 | NUR ---
MS RN CLOSING NOTE PT REMAINED STABLE DURING ACUPUNCTURIST, NO SIGNIFICANT CHANGES NOTED, NO PAIN OR RESPIRATORY DISTRESS NOTED, PT KEPT CLEAN/DRY AND COMFORTABLE, SAFETY MEASURES MAINTAINED DURING NIGHT, NEEDS ATTENDED TO DURING HOURLY ROUNDS, WILL ENDORSE TO INCOMING NURSE FOR CATIA.
--- NOTE | 2016-07-04 07:30 | NUR ---
received pt. alert and oriented x2.confused.vs stable.
[2016-07-04 08:00] VITALS: BP 174/79
--- NOTE | 2016-07-04 08:30 | NUR ---
tube feeding turned off. residual high.
[2016-07-04] MEDS: VANCOMYCIN 0.75 GM in IV D5W 250 ML IV SCH (08:40)
[2016-07-04] MEDS: ATENOLOL 25 MG TABLET GT SCH (08:41)
[2016-07-04] MEDS: MULTIVIT, IRON, MIN NO. 8, FA 1 TAB TABLET GT SCH (08:41)
[2016-07-04] MEDS: VENLAFAXINE XR 37.5 MG CAP.SR.24H GT SCH (08:41)
[2016-07-04] MEDS: PROSOURCE / PROSTAT (PYXIS) 30 ML UDC GT SCH ×2 (08:41→17:36)
[2016-07-04] MEDS: AMLODIPINE BESYLATE 10 MG TABLET GT SCH (08:42)
[2016-07-04] MEDS: POLYETHYLENE GLYCOL 3350 17 GM POWD.PACK GT SCH (08:42)
[2016-07-04] MEDS: PANTOPRAZOLE 40 MG/PACK PACK GT SCH (08:43)
[2016-07-04] MEDS: LACTOBACILLUS RHAMNOSUS GG 1 EACH CAP.SPRINK GT SCH ×2 (08:43→17:36)
[2016-07-04] MEDS: ZINC OXIDE 30 GM TUBE TP SCH (08:46)
[2016-07-04] MEDS: Z GUARD REMEDY 2 OZ OINT TP SCH ×2 (08:47→17:36)
[2016-07-04 08:55] LABS: BASOPHILS % (AUTO) 0.4 % (0.0-2.0); EOSINOPHILS # (AUTO) 0.5 /CMM (0.0-0.7); EOSINOPHILS % (AUTO) 5.1 % (0.0-6.0); HEMATOCRIT 39 % (33-45); HEMOGLOBIN 13.1 g/dL (11.5-14.8); LYMPHOCYTES # (AUTO) 0.7 /CMM (0.8-4.8); LYMPHOCYTES % (AUTO) 7.8 % (20.0-44.0); MEAN CORPUSCULAR HEMOGLOBIN 32 PG (26.0-33.0); MEAN CORPUSCULAR HGB CONC 34 g/dl (31.0-36.0); MEAN CORPUSCULAR VOLUME 95 fL (82-100); MONOCYTES # (AUTO) 0.6 /CMM (0.1-1.30); MONOCYTES % (AUTO) 6.8 % (2.0-12.0); NEUTROPHILS # (AUTO) 7.2 /CMM (1.8-8.9); NEUTROPHILS % (AUTO) 79.9 % (43.0-81.0); PLATELET COUNT (AUTO) 450 /CMM (150-450); RDW COEFFICIENT OF VARIATION 13.2 (11.5-15.0); RED BLOOD CELL COUNT(AUTO) 4.11 MIL/uL (4.0-5.2)
[2016-07-04] MEDS ORDERED: SODIUM CHLORIDE 1000 MG TABLET.SOL GT SCH (09:00)
[2016-07-04 09:10] LABS: MAGNESIUM 1.9 mg/dL (1.8-2.4); PHOSPHORUS 3.6 mg/dL (2.5-4.9)
--- NOTE | 2016-07-04 10:00 | NUR ---
wound care done.tolerated fairly well.
[2016-07-04] MEDS ORDERED: HYDROGEL DRESSING 90 GM TUBE TP SCH (10:30)
--- NOTE | 2016-07-04 11:05 | NUR ---
photos taken of skin-possible discharge today.
[2016-07-04 16:00] VITALS: BP 152/62
--- NOTE | 2016-07-04 16:00 | NUR ---
dr. faustino waters in -plans for discharge.
[2016-07-04] MEDS: CLOTRIMAZOLE/BETAMETASONE DIPROPIONATE 15 GM TUBE TP SCH ×2 (17:36→17:44)
[2016-07-04] MEDS: ENOXAPARIN SODIUM 30 MG/0.3 ML DISP.SYRIN SQ SCH (17:38)
--- NOTE | 2016-07-04 18:10 | NUR ---
ambulance here.automation driver given report.hep lock leaking and removed.report called to nurse meena at facility.all papers sent with pt.in addition to med recon sheets and instructions for antibiotics.
== END 2016-07-04 18:15 | DRG 178 ==
LOC: ER 18:01 → MED 20:30 → TELE 20:38 → MED 06-30 08:05
PROVIDERS: ADMIT Internal Medicine; ATTEND Internal Medicine Nephrology
DX: J15.6 Pneumonia due to other Gram-negative bacteria (principal); E87.1 Hypo-osmolality and hyponatremia; E44.0 Moderate protein-calorie malnutrition; E78.5 Hyperlipidemia, unspecified; F03.90 Unspecified dementia, unspecified severity, without behavioral disturbance, psychotic disturbance, mood disturbance, and anxiety; K21.9 Gastro-esophageal reflux disease without esophagitis; E86.0 Dehydration; N18.9 Chronic kidney disease, unspecified; Z66 Do not resuscitate; L89.621 Pressure ulcer of left heel, stage 1; L89.611 Pressure ulcer of right heel, stage 1; R13.10 Dysphagia, unspecified; Z93.1 Gastrostomy status; D64.9 Anemia, unspecified; D69.2 Other nonthrombocytopenic purpura; M41.9 Scoliosis, unspecified; I12.9 Hypertensive chronic kidney disease with stage 1 through stage 4 chronic kidney disease, or unspecified chronic kidney disease; Z68.31 Body mass index [BMI] 31.0-31.9, adult
CPT/HCPCS: 36415; 71010-TC; 80048-TC; 80053-TC; 80076-TC; 80202-TC; 81000-TC; 83605-TC; 83735-TC; 83880; 84100-TC; 84484-TC; 85025-TC; 85730-TC; 87040-TC; 87081-TC; 87086-TC; 92526; 92611-TC; 94799-TC; A4606; A6248; J1650; J1956; J2543; J3370; J7040; J7050; J7060; Z7610

== ENCOUNTER 2017-07-11 09:13 | Inpatient (IN) | payer MEDICARE, BC, MEDICAID ==
[~2017-07-11] VITALS: Ht 165.1 cm; Wt 85.3 kg
[2017-07-11] VITALS (25 sets, daily range): BP systolic 109–152; BP diastolic 40–73
[~2017-07-11 09:13] MED LIST: ACET1TAB12 GT; ACET650S26 GT; ALEN70TA3 GT; AMIN30LI4 GT; AMLO10TA6 GT; ATEN25TA GT; GEMF600T GT; MAG30ORA GT; MULT-659 GT; NUT.237L30 GT; OMEP10SU2 GT; ONDA4TAB5 GT; POLY17PO4 GT; SIMV20TA6 GT; SODI1TAB3 GT; TEMA15CA GT; VENL37.55 GT
--- NOTE | 2017-07-11 09:25 | NUR ---
[id number] FROM [facility]: SOB, HYPOXIA ~ 30 MIN SHUTTLE THREADER. ARRIVED ON 12L OXYGEN VIA NON REBREATHER. SATURATING 96%. VITALS STABLE. A/OX 2. TACHYPNIC, SHORT OF BREATH. AT BEDSIDE, ORDERED BIPAP. RT APPLIED BIPAP IMMEDIATELY. SAFETY AND COMFORT MEASURES IN PLACE. WILL MONITOR.
--- NOTE | 2017-07-11 09:25 | NUR ---
RT PT BROUGHT IN DUE TO RESP DISTRESS, DR. YBARRA ORDERED TO PLACE PT ON BIPAP.
[2017-07-11] MEDS ORDERED: NITROGLYCERIN PACKET 1 GM PACKET TD ONE (09:30)
[2017-07-11] MEDS ORDERED: FUROSEMIDE 40 MG/4 ML VIAL IV ONE ×2 (09:30→12:30)
--- NOTE | 2017-07-11 09:30 | NUR ---
PT PLACED ON BIPAP WITH NOTED SETTINGS. NO SKIN BREAKDOWN NOTED ON PTS FACE. ABG ORDERED BY DR YBARRA.
[2017-07-11] MEDS ORDERED: FUROSEMIDE 40 MG/4 ML VIAL ONE (09:32)
[2017-07-11] MEDS ORDERED: NITROGLYCERIN PACKET 1 GM PACKET ONE (09:32)
--- NOTE | 2017-07-11 09:35 | NUR ---
NEW IV STARTED ON LEFT WRIST, 20G. BLOOD DRAWN AND SEN TO LAB.
[2017-07-11 09:42] LABS: BASOPHILS # (AUTO) 0.8 /CMM (0.0-0.2); BASOPHILS % (AUTO) 4.8 % (0.0-2.0); EOSINOPHILS % (AUTO) 2.7 % (0.0-6.0); HEMATOCRIT 36 % (33-45); LYMPHOCYTES # (AUTO) 0.9 /CMM (0.8-4.8); LYMPHOCYTES % (AUTO) 5.5 % (20.0-44.0); MEAN CORPUSCULAR HGB CONC 33 g/dl (31.0-36.0); MEAN CORPUSCULAR VOLUME 93 fL (82-100); MONOCYTES # (AUTO) 1.1 /CMM (0.1-1.30); MONOCYTES % (AUTO) 6.9 % (2.0-12.0); NEUTROPHILS # (AUTO) 12.7 /CMM (1.8-8.9); NEUTROPHILS % (AUTO) 80.1 % (43.0-81.0); PLATELET COUNT (AUTO) 401 /CMM (150-450); RDW COEFFICIENT OF VARIATION 13.8 (11.5-15.0); RED BLOOD CELL COUNT(AUTO) 3.88 MIL/uL (4.0-5.2); WHITE BLOOD COUNT (AUTO) 15.9 K/uL (4.3-11.0)
[2017-07-11 09:51] LABS: CALCIUM, SERUM 9.6 mg/dL (8.5-10.1); CARBON DIOXIDE 38 mmol/L (21-32); CHLORIDE 96 mmol/L (98-107); CREATININE 1.5 mg/dL (0.6-1.3); GLUCOSE 205 mg/dL (74-106); POTASSIUM 5.6 mmol/L (3.5-5.1); SODIUM SERUM 132 mmol/L (136-145); UREA NITROGEN, BLOOD 72 mg/dL (7-18)
[2017-07-11 09:53] LABS: ABG BASE EXCESS 7.1 mmol/L; ABG OXYGEN SATURATION 97.2 % (92.0-98.5); ABG PCO2 90.5 mmHg (35.0-45.0); ABG PH 7.236 (7.350-7.450); ABG PO2 101.7 mmHg (75.0-100.0); AaDO2 300.1 mmHg; COHb 0.5 % (0.5-1.5); MetHb 0.4 % (0.0-1.5); O2Hb 96.3 % (94.0-97.0); SITE, ABG Right Radial; VENT MODE, BG 15/5 BUR 16
[2017-07-11 09:54] LABS: INR 0.87 (0.85-1.15)
[2017-07-11 09:58] LABS: TROPONIN I < 0.017 ng/mL (0.00-0.056)
--- NOTE | 2017-07-11 10:00 | NUR ---
RT ABG DONE. RESULTS NOTIFIED TO DR YBARRA. INCREASED IPAP TO 25. DECREASED FIO2 TO 60%
[2017-07-11 10:04] LABS: ALANINE AMINOTRANSFERASE 12 U/L (12-78); ALKALINE PHOSPHATASE 63 U/L (46-116); ASPARTATE AMINOTRANSFERASE 17 U/L (15-37); B-TYPE NATRIURETIC PEPTIDE 8597 PG/ML (0-125); BILIRUBIN,DIRECT 0.1 mg/dL (0.0-0.2); BILIRUBIN,TOTAL 0.2 mg/dL (0.2-1.0)
[2017-07-11] MEDS ORDERED: MULT9LIQ6 GT (10:16)
[2017-07-11] MEDS ORDERED: CRAN3875 GT (10:16)
[2017-07-11] MEDS ORDERED: IPRA0.2S9 IH (10:16)
[2017-07-11] MEDS ORDERED: LACT1CAP7 GT (10:16)
[2017-07-11] MEDS ORDERED: ALBU2.5V38 IH (10:16)
[2017-07-11] MEDS ORDERED: TEMA7.5C12 GT (10:16)
[2017-07-11] MEDS ORDERED: CALC-261 GT (10:16)
[2017-07-11] MEDS ORDERED: CRAN425C6 GT (10:16)
[2017-07-11] MEDS ORDERED: PRED5TAB48 GT (10:16)
[2017-07-11] MEDS ORDERED: ACET160L33 GT (10:16)
[2017-07-11] MEDS ORDERED: ACET325T53 GT (10:16)
--- NOTE | 2017-07-11 10:18 | NUR ---
[facility] NEPHROLOGY PAGED . DR GOLDSMITH CLINICAL PHARMACY TECHNICIAN
--- NOTE | 2017-07-11 10:19 | NUR ---
16 FR painter catheter inserted per sterile protocal. Immediate output 60 ML of urine, straw color, cloudy.
[2017-07-11] MEDS ORDERED: CEFTRIAXONE 1GM BAG (ER ONLY) 50 ML IV ONE ×2 (10:30→10:32)
[2017-07-11] MEDS ORDERED: AZITHROMYCIN 500 MG in IV D5W 250 ML IV ONE (10:30)
[2017-07-11 10:40] LABS: APPEARANCE,URINE Cloudy (CLEAR); BILIRUBIN,URINE Negative (NEGATIVE); BLOOD, URINE Moderate Ery/uL (NEGATIVE); COLOR,URINE Yellow (YELLOW); KETONES,URINE Negative (NEGATIVE); LEUKOCYTE ESTERASE ,URINE Negative (NEGATIVE); NITRITE, URINE Negative (NEGATIVE); PROTEIN,URINE >=300 mg/dl (NEGATIVE); UGLUCOSE 100 MG/DL mg/dL (NEGATIVE); UROBILINOGEN,URINE 0.2 EU/dL (0.2)
--- NOTE | 2017-07-11 10:50 | NUR ---
REPORT GIVEN TO MARILIN LACEY FOR CATIA UPON ADMISSION.
[2017-07-11 10:54] LABS: BACTERIA,URINE Moderate /HPF (None Seen); SQUAMOUS EPITHELIAL CELL,UR Few /HPF (None Seen)
--- NOTE | 2017-07-11 11:20 | NUR ---
RT TRANSPORTED PT TO ICU. PLACED BACK ON BIPAP WITH MEPILEX FOR SKIN INTEGRITY. NO REDNESS NOTED ON PTS FACE WHILE BEING ON BIPAP IN ER. GAVE REPORT TO RT JERONIMO FOR CONTINUING CARE.
--- NOTE | 2017-07-11 11:37 | NUR ---
PATIENT TRANSPORTED TO ICU, 263 VIA ACLS PROTOCOL. RNMARILIN TO PROVIDE CATIA.
[2017-07-11] MEDS ORDERED: FEE PK DOSING 1 MIN EA MC ONE (12:17)
[2017-07-11] MEDS: methylPREDNISolone SOD SUCC 40 MG/ML VIAL IV SCH ×2 (13:13→17:33)
[2017-07-11 13:35] LABS: ABG BASE EXCESS 7.6 mmol/L; ABG OXYGEN SATURATION 98.4 % (92.0-98.5); ABG PCO2 72.9 mmHg (35.0-45.0); ABG PH 7.311 (7.350-7.450); ABG PO2 137.2 mmHg (75.0-100.0); AaDO2 210.4 mmHg; MetHb 0.4 % (0.0-1.5); SITE, ABG Left Radial
[2017-07-11] MEDS: VANCOMYCIN 1 GM in IV NS 0.9% 250 ML IV SCH (13:36)
--- NOTE | 2017-07-11 13:50 | NUR ---
Bipap changes per Dr. Esteves. Decreased Fi02 from 60% to 40%. ABG in 2 hours Addendum: 07/11/17 at 1707 by PHANI LEDEZMA RT Amended: Links added.
--- NOTE | 2017-07-11 14:00 | NUR ---
PT AOX3, VSS, BIPAPP SETTINGS 25/5 RR16, 70%. ABG OBTAINED AND REPORTED TO DR ROGERS NOW FIO2 CHANGED TO 40%. WILL OBTAIN ABG IN 2H. PT DENIES SOB, DENIES CHEST PAIN. RIGHT UPPER EXTREMITY EDEMA 3+. PT STATES "IT IS BEEN LIKE THIS IN REHAB AND ULTRASOUND 2-3 DAYS AGO WAS OBTAINED, AND DOCTOR SAID "NO BLOOD CLOT". DR GOLDSMITH PAGED VIA OFFICE AND VIA TEXT TO VERIFY THE PT INFO, AWAITING RESPONSE. PT ALSO STATES THAT GT NEEDS TO BE REPLACED BUT UNABLE CLEARLY ENPLANE WHY. WILL VERIFY WITH DR GOLDSMITH THE PLAN FOR GT.
[2017-07-11] MEDS: PIPERACILLIN /TAZOBACTAM 2.25 G in IV NS 0.9% 50 ML IV SCH ×2 (15:24→20:46)
--- NOTE | 2017-07-11 16:00 | NUR ---
ABG REPORTED AND R UE SWELLING REPORTED TO DR ROGERS, BIPAP SETTINGS CHANGES CARDED OUT BY RUTH BE, DUKE BRO DOPPLER ORDERED.
[2017-07-11 16:06] LABS: ABG BASE EXCESS 8.2 mmol/L; ABG OXYGEN SATURATION 94.2 % (92.0-98.5); ABG PCO2 64.4 mmHg (35.0-45.0); ABG PH 7.361 (7.350-7.450); ABG PO2 66.7 mmHg (75.0-100.0); AaDO2 144.4 mmHg; COHb 0.2 % (0.5-1.5); MetHb 0.1 % (0.0-1.5); O2Hb 93.9 % (94.0-97.0); SITE, ABG Left Radial
[2017-07-11] MEDS: IPRATROPIUM NEB FS 0.5 MG/2.5 ML AMPUL.NEB NEB SCH ×2 (17:30→19:39)
[2017-07-11] MEDS: ALBUTEROL HALF STRENGTH 1.25 MG/3 ML VIAL.NEB NEB SCH ×2 (17:30→19:39)
[2017-07-11] MEDS: HEPARIN SODIUM, PORCINE 5000 UNITS/1 ML VIAL SQ SCH (17:34)
--- NOTE | 2017-07-11 18:15 | NUR ---
RT NOTE PATIENT RECEIVED ON BIPAP TRANSFERRED FROM ER. TRU BAG @ HOB. MEPILEX APPLIED ON FACE. SMALL MASK PLACED ON PATIENT. ALARMS ON AND AUDIBLE. BIPAP PLUGGED INTO RED OUTLET. MONITORED CLOSELY T/O SHIFT. CURRENT VENT SETTINGS: 20/5, 16, 40%. PATIENT TOLERATES WELL. Addendum: 07/11/17 at 1818 by PHANI LEDEZMA RT Amended: Links added.
--- NOTE | 2017-07-11 19:30 | NUR ---
OIL FIELD EQUIPMENT MECHANIC: RECEIVED PT. A/O X 3. ON BIPAP MACHINE WT SETTINGS ORDERED AND TOLERATING WELL. NO ACUTE DISTRESS, NO EVIDENCE OF DISCOMFORT AND NO C/O PAIN. SR ON HYDRAULIC AND PLUMBING INSTALLER. AFEBRILE. BP WNL. AFEBRILE. IV SITES INTACT WT NO S/S OF INFILTRATION. RT. ARM SWELLING NOTED AND STILL AWAITING FOR VENOUS DOPPLER US. F/C PATENT AND INTACT DRAINING CLEAR YELLOW URINE TO GRAVITY. HOB AT 45 DEGREES. SAFETY PRECAUTION NOTED. WILL CONTINUE TO MONITOR.
--- NOTE | 2017-07-11 19:44 | NUR ---
PT CURRENTLY ON BIPAP WITH MEPILIX IN PLACE AND CURRENTLY ALTERNATING BETWEEN NASAL MASK AND REGULAR MASK, TO REDUCE THE RISK OF SKIN BREAK DOWN DEEPTHI PATEL. CURRENTLY NO SKIN BREAK DOWN AND NO RESPIRATORY DISTRESS NOTED Addendum: 07/11/17 at 1946 by MOLLY CASTELLANO RT Amended: Links added.
--- NOTE | 2017-07-11 19:46 | NUR ---
PT'S BROTHER UPDATED ON PT PROGRESS.
[2017-07-12] VITALS (27 sets, daily range): BP systolic 126–154; BP diastolic 49–69
[2017-07-12] MEDS: IPRATROPIUM NEB FS 0.5 MG/2.5 ML AMPUL.NEB NEB SCH ×4 (01:16→19:54)
[2017-07-12] MEDS: ALBUTEROL HALF STRENGTH 1.25 MG/3 ML VIAL.NEB NEB SCH ×4 (01:16→19:54)
[2017-07-12] MEDS: HEPARIN SODIUM, PORCINE 5000 UNITS/1 ML VIAL SQ SCH ×3 (01:43→17:54)
[2017-07-12] MEDS: PIPERACILLIN /TAZOBACTAM 2.25 G in IV NS 0.9% 50 ML IV SCH ×4 (01:53→20:15)
--- NOTE | 2017-07-12 04:00 | NUR ---
ECHO TECHNOLOGIST: BED BATH GIVEN AND TOLERATED FAIRLY. VS WITHIN HER BASELINE.
[2017-07-12 05:46] LABS: BASOPHILS % (AUTO) 0.1 % (0.0-2.0); EOSINOPHILS % (AUTO) 0.2 % (0.0-6.0); HEMATOCRIT 34 % (33-45); HEMOGLOBIN 11.5 g/dL (11.5-14.8); LYMPHOCYTES # (AUTO) 0.3 /CMM (0.8-4.8); MEAN CORPUSCULAR HGB CONC 34 g/dl (31.0-36.0); MEAN CORPUSCULAR VOLUME 92 fL (82-100); MONOCYTES # (AUTO) 0.1 /CMM (0.1-1.30); MONOCYTES % (AUTO) 1.6 % (2.0-12.0); NEUTROPHILS # (AUTO) 4.1 /CMM (1.8-8.9); NEUTROPHILS % (AUTO) 91.1 % (43.0-81.0); PLATELET COUNT (AUTO) 331 /CMM (150-450); RED BLOOD CELL COUNT(AUTO) 3.71 MIL/uL (4.0-5.2); WHITE BLOOD COUNT (AUTO) 4.5 K/uL (4.3-11.0)
--- NOTE | 2017-07-12 05:55 | NUR ---
FIXER BOARDING ROOM: NO SIGNIFICANT CATIA DURING THE SHIFT. REMAINED A/O X 3. BIPAP SETTINGS TOLERATED WELL. NO ACUTE DISTRESS, NO C/O PAIN. REQUESTED FOR ICE CHIPS AND TOLERATED WELL. SAFETY/ASPIRATION PRECAUTION NOTED AT ALL TIMES.
[2017-07-12 06:04] LABS: CALCIUM, SERUM 9.3 mg/dL (8.5-10.1); CARBON DIOXIDE 37 mmol/L (21-32); CHLORIDE 97 mmol/L (98-107); CREATININE 1.5 mg/dL (0.6-1.3); GLUCOSE 170 mg/dL (74-106); MAGNESIUM 2.6 mg/dL (1.8-2.4); POTASSIUM 5.1 mmol/L (3.5-5.1); SODIUM SERUM 136 mmol/L (136-145); UREA NITROGEN, BLOOD 68 mg/dL (7-18)
--- NOTE | 2017-07-12 08:22 | NUR ---
Pt received on BiPAP and placed on 2LNC. Skin is intact. Pt showing no signs of respiratory distress at this time. Addendum: 07/12/17 at 1354 by MIN WAGNER RT Amended: Links added.
[2017-07-12] MEDS: methylPREDNISolone SOD SUCC 40 MG/ML VIAL IV SCH ×3 (08:49→17:55)
[2017-07-12] MEDS ORDERED: GLYTROL 1,000 ML BAG GT PRN (11:00)
[2017-07-12] MEDS: VANCOMYCIN 1 GM in IV NS 0.9% 250 ML IV SCH (12:47)
--- NOTE | 2017-07-12 14:00 | NUR ---
pt aox4 vss, denies chest pain, remains off bipap, denies sob on 2l nc. swallow eval in progress, will initiate gtf as ordered by dr Jesus.
--- NOTE | 2017-07-12 19:00 | NUR ---
Edu provided for pending US guided Thoracentesis, pt verbalizes understanding. Consent obtained.
--- NOTE | 2017-07-12 19:44 | NUR ---
COW WASHER. INITIAL ASSESSMENT. RECEIVED THE PT REST ON THE BED. AWAKE, ALERT, FOLLOW COMMANDS. MOPPER SHOWING NSR. OXYGEN 2L VIA NASAL CANNULA, SAT 98%. NO ACUTE DISTRESS NOTED. IV RLT HAND 20G, SALINE LOCK. FC PATENT. HOB ELEVATED. GT INTACT. WILL CONTINUE TO MONITOR VITALS.
--- NOTE | 2017-07-12 23:50 | NUR ---
HAY FARMER NOTES RECEIVED CONTINUITY OF CARE FROM CAROLYN. PATIENT RESTING COMFORTABLY AT THIS TIME. NO S/S OF PAIN OR DISCOMFORT. NO S/S RESPIRATORY DISTRESS. WILL CONTINUE TO MONITOR.
[2017-07-13] VITALS (19 sets, daily range): BP systolic 115–161; BP diastolic 52–94
[2017-07-13] MEDS: ALBUTEROL HALF STRENGTH 1.25 MG/3 ML VIAL.NEB NEB SCH ×4 (01:30→20:09)
[2017-07-13] MEDS: IPRATROPIUM NEB FS 0.5 MG/2.5 ML AMPUL.NEB NEB SCH ×4 (01:30→20:09)
--- NOTE | 2017-07-13 01:46 | NUR ---
METAL CHECKER.PT REFUSED NOCTURNAL BIPAP. SAT 98%. NO ACUTE DISTRESS NOTED.
--- NOTE | 2017-07-13 01:49 | NUR ---
RT NOTES: PT REFUSED NOC BIPAP AND BREATHING TX. NO DISTRESS NOTED. SPO2 98% WILL CONT. TO MONITOR. RN AWARE.
[2017-07-13] MEDS: PIPERACILLIN /TAZOBACTAM 2.25 G in IV NS 0.9% 50 ML IV SCH ×4 (01:54→20:19)
[2017-07-13] MEDS: HEPARIN SODIUM, PORCINE 5000 UNITS/1 ML VIAL SQ SCH ×3 (01:55→17:07)
[2017-07-13 04:56] LABS: BASOPHILS % (AUTO) 0.1 % (0.0-2.0); EOSINOPHILS % (AUTO) 0.1 % (0.0-6.0); HEMATOCRIT 33 % (33-45); HEMOGLOBIN 11.2 g/dL (11.5-14.8); LYMPHOCYTES # (AUTO) 0.3 /CMM (0.8-4.8); LYMPHOCYTES % (AUTO) 6.7 % (20.0-44.0); MEAN CORPUSCULAR HGB CONC 34 g/dl (31.0-36.0); MEAN CORPUSCULAR VOLUME 92 fL (82-100); MONOCYTES # (AUTO) 0.2 /CMM (0.1-1.30); MONOCYTES % (AUTO) 4.8 % (2.0-12.0); NEUTROPHILS # (AUTO) 4.7 /CMM (1.8-8.9); NEUTROPHILS % (AUTO) 88.3 % (43.0-81.0); PLATELET COUNT (AUTO) 320 /CMM (150-450); RDW COEFFICIENT OF VARIATION 14.1 (11.5-15.0)
[2017-07-13 04:58] LABS: ALANINE AMINOTRANSFERASE 15 U/L (12-78); ALBUMIN 1.8 g/dL (3.4-5.0); ALKALINE PHOSPHATASE 49 U/L (46-116); ASPARTATE AMINOTRANSFERASE 16 U/L (15-37); BILIRUBIN,TOTAL 0.2 mg/dL (0.2-1.0); CALCIUM, SERUM 9.5 mg/dL (8.5-10.1); CARBON DIOXIDE 37 mmol/L (21-32); CHLORIDE 97 mmol/L (98-107); CREATININE 1.7 mg/dL (0.6-1.3); GLUCOSE 195 mg/dL (74-106); MAGNESIUM 2.6 mg/dL (1.8-2.4); PHOSPHORUS 3.8 mg/dL (2.5-4.9); POTASSIUM 4.5 mmol/L (3.5-5.1); SODIUM SERUM 137 mmol/L (136-145); TOTAL PROTEIN, SERUM 6.5 g/dL (6.4-8.2); UREA NITROGEN, BLOOD 66 mg/dL (7-18)
[2017-07-13 05:47] LABS: RED BLOOD CELL COUNT(AUTO) 3.42 MIL/uL (4.0-5.2); WHITE BLOOD COUNT (AUTO) 4.8 K/uL (4.3-11.0)
--- NOTE | 2017-07-13 07:27 | NUR ---
KNIT GOODS PRESS HAND CLOSING NOTES NO SIGNIFICANT CHANGES OVERNIGHT. NO RESPIRATORY DISTRESS. SLEPT WELL THROUGH THE NIGHT. ALL NEEDS ANTICIPATED AND MET. TOLERATING GTF AT 50ML/HR. GOAL RATE 80ML/HR. F/C PATENT AND INTACT, DRAINING BY GRAVITY. KEPT CLEAN AND DRY. TURNED AND REPOSITIONED Q2 AND PRN. HOB ELEVATED. SIDE RAILS UP AND LOCKED. BED KEPT AT LOWEST POSITION. CALL LIGHT KEPT WITHIN EASY REACH. FOR THORACENTESIS PROCEDURE TODAY. CONTINUITY OF CARE ENDORSED TO AM NURSE.
[2017-07-13] MEDS: methylPREDNISolone SOD SUCC 40 MG/ML VIAL IV SCH ×3 (08:58→16:52)
[2017-07-13] MEDS ORDERED: Z GUARD REMEDY 2 OZ OINT TP PRN (10:30)
--- NOTE | 2017-07-13 10:30 | NUR ---
WOUND CARE CONSULT WOUND CARE RECEIVED CONSULT. WOUND CARE WILL DEFER CONSULT AND ALL TREATMENT PLANS TO SURGICAL TEAM WHO ARE CURRENTLY FOLLOWING. ALL PRESSURE ULCER PREVENTION MEASURES NOTED TO BE IN PLACE AT THIS TIME. PATIENT WITH CURRENT ART AT 18.
[2017-07-13] MEDS ORDERED: LIDOCAINE HCL/PF 1% 30 ML SDV ONE (11:42)
[2017-07-13] MEDS: HYDROCODONE/APAP 10/325MG 1 EA TABLET PO PRN ×2 (11:58→17:54)
[2017-07-13] MEDS: Z GUARD REMEDY 2 OZ OINT TP SCH (11:58)
[2017-07-13] MEDS ORDERED: ACETAMINOPHEN 650 MG/20.3 ML UDC GT PRN (13:00)
[2017-07-13] MEDS ORDERED: ALBUTEROL FS 2.5 MG/3 ML VIAL.NEB IH PRN (13:00)
[2017-07-13] MEDS ORDERED: GLYTROL 1,000 ML BAG GT SCH (13:00)
[2017-07-13] MEDS ORDERED: IPRATROPIUM NEB FS 0.5 MG/2.5 ML AMPUL.NEB IH PRN (13:00)
[2017-07-13] MEDS ORDERED: ACETAMINOPHEN 650 MG/20.3 ML UDC PO PRN (13:00)
[2017-07-13] MEDS ORDERED: ALENDRONATE 70 MG TABLET GT SCH (13:00)
[2017-07-13] MEDS ORDERED: MAG HYDROX/AL HYDROX/SIMETH 30 ML UDC GT PRN (13:00)
[2017-07-13] MEDS ORDERED: ONDANSETRON 4 MG TAB.RAPDIS GT PRN (13:30)
[2017-07-13] MEDS: VANCOMYCIN 1 GM in IV NS 0.9% 250 ML IV SCH (14:43)
--- NOTE | 2017-07-13 15:15 | NUR ---
RN NOTE PT HAD US GUIDED THORACENTHESIS DONE PER RADIOLOGIST, MORE FLUID ON LEFT CHEST THAN ON THE RIGHT, TOTAL OUTPUT WAS 450 ML, AND SPECIMEN IS SENT TO THE LAB. PT TOLERATED WELL, STAT CXR ORDERED. WILL FOLLOW UP. SAFETY MEASURES IMPLEMENTED AT ALL TIMES, CALL LIGHT WITHIN REACH.
[2017-07-13] MEDS: CALCIUM CARB 600MG /VIT D 1 EACH TABLET GT SCH (15:42)
--- NOTE | 2017-07-13 15:47 | NUR ---
Pt refused abg. RN and charge nurse notified
[2017-07-13 16:50] LABS: ABG BASE EXCESS 5.8 mmol/L; ABG OXYGEN SATURATION 94.3 % (92.0-98.5); ABG PCO2 42.2 mmHg (35.0-45.0); ABG PO2 69.8 mmHg (75.0-100.0); COHb 0.3 % (0.5-1.5); MetHb 0.4 % (0.0-1.5); O2Hb 93.6 % (94.0-97.0); SITE, ABG Right Radial; VENT MODE, BG 2LPM N.C
[2017-07-13] MEDS: PROSOURCE / PROSTAT (PYXIS) 30 ML UDC GT SCH (16:52)
[2017-07-13] MEDS ORDERED: Medication Not On Formulary EA (Cran/Vitc/Mannose/Inulin/Brom (Uti-Stat Liquid) 30 ML) GT SCH (17:00)
--- NOTE | 2017-07-13 17:00 | NUR ---
RN NOTE PT TRANSFERRED TO [facility] WITH THE RN TO ROOM 115-1. PT STABLE.
--- NOTE | 2017-07-13 20:36 | NUR ---
RN NOTES RECEIVED PATIENT AWAKE IN BED WITH NO DISTRESS NOTED. BREATHING EVEN AND UNLABORED. NO COMPLAINT OF PAIN OR DISCOMFORT. ALERT AND ORIENTED. ABLE TO VERBALIZE NEEDS. GTUBE IN PLACE, FEEDING WELL TOLERATED. HOB ELEVATED. VITAL SIGNS WNL. KEPT CLEAN AND DRY. WILL CONTINUE TO MONITOR
[2017-07-13] MEDS: SIMVASTATIN 20 MG TABLET GT SCH (21:30)
[2017-07-13] MEDS: TEMAZEPAM 7.5 MG CAPSULE GT SCH (21:31)
[2017-07-14] VITALS: BP 114/51
[2017-07-14] MEDS: ALBUTEROL HALF STRENGTH 1.25 MG/3 ML VIAL.NEB NEB SCH ×4 (01:20→20:16)
[2017-07-14] MEDS: IPRATROPIUM NEB FS 0.5 MG/2.5 ML AMPUL.NEB NEB SCH ×4 (01:20→20:16)
[2017-07-14] MEDS: GLYTROL 1,000 ML BAG GT PRN ×2 (02:01→16:32)
[2017-07-14] MEDS: PIPERACILLIN /TAZOBACTAM 2.25 G in IV NS 0.9% 50 ML IV SCH ×4 (02:09→22:12)
[2017-07-14] MEDS: HEPARIN SODIUM, PORCINE 5000 UNITS/1 ML VIAL SQ SCH ×3 (02:09→16:31)
[2017-07-14 04:00] VITALS: BP_SYST 160; BP_SYST 169; BP_DIAS 53; BP_DIAS 62
--- NOTE | 2017-07-14 06:30 | NUR ---
RN CLOSING NOTES PATIENT IN BED, NO SIGNIFICANT CHANGE OF CONDITION. ALERT AND ORIENTED. NO COMPLAINT OF PAIN OR DISCOMFORT. BREATHING EVEN AND UNLABORED. WILL ENDORSE TO AM SHIFT FOR CONTINUITY OF CARE
[2017-07-14 06:51] LABS: CALCIUM, SERUM 8.2 mg/dL (8.5-10.1); CARBON DIOXIDE 33 mmol/L (21-32); CHLORIDE 98 mmol/L (98-107); CREATININE 1.7 mg/dL (0.6-1.3); GLUCOSE 295 mg/dL (74-106); POTASSIUM 4.3 mmol/L (3.5-5.1); SODIUM SERUM 136 mmol/L (136-145); UREA NITROGEN, BLOOD 73 mg/dL (7-18)
--- NOTE | 2017-07-14 07:05 | NUR ---
RN NOTES RECEIVED PATIENT ON BED, A/Ox2, ON O2 AT 2L N/C , NO SOB NOTED, RESPIRATION EVEN AND UNLABORED, ON TELE SR WITH PAC'S HR IN 70'S , [place] DRAINING TO GRAVITY WITH YELLOW URINE, GLYTROL AT 80CC/HR RUNNING VIA GT AT 80CC/HR , TOLERATING WELL, HOB ELEVATED. SR UP x3, CALL LIGHT WITHIN EASY REACH, BED LOCKED AND IN LOWEST POSITION, CONTINUE TO MONITOR PT CLOSELY .
[2017-07-14 08:00] VITALS: BP_SYST 147; BP_SYST 156; BP_DIAS 56; BP_DIAS 68
[2017-07-14] MEDS: CALCIUM CARB 600MG /VIT D 1 EACH TABLET GT SCH ×2 (08:28→12:14)
[2017-07-14] MEDS: methylPREDNISolone SOD SUCC 40 MG/ML VIAL IV SCH ×3 (08:29→16:30)
[2017-07-14] MEDS: POLYETHYLENE GLYCOL 3350 17 GM POWD.PACK GT SCH (08:35)
[2017-07-14] MEDS: PANTOPRAZOLE 40 MG/PACK PACK GT SCH (08:35)
[2017-07-14] MEDS: MULTIVITAMINS,THERAGRAN 1 UDTAB TABLET PO SCH (08:35)
[2017-07-14] MEDS: ACETAMINOPHEN 650 MG/20.3 ML UDC GT SCH (08:35)
[2017-07-14] MEDS: LACTOBACILLUS RHAMNOSUS GG 1 EACH CAP.SPRINK GT SCH (08:35)
[2017-07-14] MEDS: ATENOLOL 25 MG TABLET GT SCH (08:35)
[2017-07-14] MEDS: AMLODIPINE BESYLATE 10 MG TABLET GT SCH (08:36)
[2017-07-14] MEDS: PROSOURCE / PROSTAT (PYXIS) 30 ML UDC GT SCH ×2 (08:36→16:30)
[2017-07-14] MEDS: Z GUARD REMEDY 2 OZ OINT TP SCH (08:40)
[2017-07-14] MEDS ORDERED: Medication Not On Formulary EA (Cranberry Extract (Cranberry) 425 MG) GT SCH (09:00)
[2017-07-14] MEDS: ACETAMINOPHEN W/ CODEINE#3 1 EA TABLET GT PRN (09:11)
[2017-07-14 12:00] VITALS: BP 153/57
--- NOTE | 2017-07-14 12:00 | NUR ---
RN NOTES PT REFUSED TO HAVE LUNCH AT THIS TIME , RECEIVING TF GLYTROL AT 80 CC/HR , NO RESIDUAL NOTED , CONTINUE TO MONITOR
[2017-07-14] MEDS: VANCOMYCIN 1 GM in IV NS 0.9% 250 ML IV SCH (13:00)
[2017-07-14 16:00] VITALS: BP 159/62
--- NOTE | 2017-07-14 18:31 | NUR ---
RN NOTES RESPIRATION EVEN AND UNLABORED, TOLERATING TF WELL , [place] DRAINING TO GRAVITY ,SR UP x3, CALL LIGHT WITHIN EASY REACH, WILL ENDOSE TO JAVA J2EE APPLICATION DEVELOPER NURSE FOR CATIA
[2017-07-14 20:00] VITALS: BP 159/57
--- NOTE | 2017-07-14 20:32 | NUR ---
RN NOTES RECEIVED PATIENT AWAKE IN BED. BREATHING EVEN AND UNLABORED. ALERT AND ORIENTED. ABLE TO VERBALIZE NEEDS. NO COMPLAINT OF PAIN OF THIS TIME. VITAL SIGNS WNL. KEPT CLEAN AND DRY. WILL CONTINUE TO MONITOR.
[2017-07-14] MEDS: TEMAZEPAM 7.5 MG CAPSULE GT SCH (22:13)
[2017-07-14] MEDS: SIMVASTATIN 20 MG TABLET GT SCH (22:14)
[2017-07-15] VITALS: BP 159/67
[2017-07-15] MEDS ORDERED: VANCOMYCIN 1 GM in IV D5W 250 ML IV SCH (01:00)
[2017-07-15] MEDS: ALBUTEROL HALF STRENGTH 1.25 MG/3 ML VIAL.NEB NEB SCH ×3 (01:15→13:09)
[2017-07-15] MEDS: IPRATROPIUM NEB FS 0.5 MG/2.5 ML AMPUL.NEB NEB SCH ×3 (01:16→13:09)
[2017-07-15] MEDS: HEPARIN SODIUM, PORCINE 5000 UNITS/1 ML VIAL SQ SCH ×2 (02:24→08:44)
[2017-07-15] MEDS: PIPERACILLIN /TAZOBACTAM 2.25 G in IV NS 0.9% 50 ML IV SCH ×3 (02:58→14:32)
[2017-07-15 04:00] VITALS: BP 152/68
--- NOTE | 2017-07-15 06:48 | NUR ---
RN CLOSING NOTES NO SIGNIFICANT CHANGE OF CONDITION. IN BED RESTING COMFORTABLY WITH NO RESPIRATORY DISTRESS NOTED. VITAL SIGNS WNL. NO COMPLAINT OF PAIN OF THIS TIME. WILL ENDORSE TO AM SHIFT FOR CONTINUITY OF CARE
[2017-07-15 07:03] LABS: CALCIUM, SERUM 7.8 mg/dL (8.5-10.1); CARBON DIOXIDE 32 mmol/L (21-32); CHLORIDE 97 mmol/L (98-107); CREATININE 1.6 mg/dL (0.6-1.3); POTASSIUM 3.9 mmol/L (3.5-5.1); SODIUM SERUM 136 mmol/L (136-145); UREA NITROGEN, BLOOD 75 mg/dL (7-18)
[2017-07-15 07:10] LABS: GLUCOSE 358 mg/dL (74-106)
--- NOTE | 2017-07-15 07:12 | NUR ---
RN INITIAL NOTES: REC'D PT AWAKE ON BED, NOT IN ANY DISTRESS, A/O X 2-3. ON NC AT 2LPM, NO SOB. ON TELEMONITOR, SR. HAS 3 IV LINE ACCESS: L FINGER G20, R HAND G20, & L WRIST G20 - ALL SL, FLUSHING WELL, NO S/SX OF INFECTION/INFILTRATION NOTED. ON CONT TF GLYTROL X 80 CC/HR INFUSING WELL VIA GT. HAS FC PATENT & INTACT. PROVIDED COMFORT & SAFETY MEASURES. BED KEPT LOW & IN LOCKED POS. CALL LIGHT PLACED W/IN REACH. WILL CONTINUE TO MONITOR & ATTEND PT NEEDS.
[2017-07-15 08:00] VITALS: BP 157/68
[2017-07-15] MEDS: LACTOBACILLUS RHAMNOSUS GG 1 EACH CAP.SPRINK GT SCH (08:42)
[2017-07-15] MEDS: methylPREDNISolone SOD SUCC 40 MG/ML VIAL IV SCH ×3 (08:42→17:03)
[2017-07-15] MEDS: POLYETHYLENE GLYCOL 3350 17 GM POWD.PACK GT SCH (08:42)
[2017-07-15] MEDS: CALCIUM CARB 600MG /VIT D 1 EACH TABLET GT SCH ×2 (08:43→13:14)
[2017-07-15] MEDS: MULTIVITAMINS,THERAGRAN 1 UDTAB TABLET PO SCH (08:43)
[2017-07-15] MEDS: PROSOURCE / PROSTAT (PYXIS) 30 ML UDC GT SCH ×2 (08:43→17:03)
[2017-07-15] MEDS: PANTOPRAZOLE 40 MG/PACK PACK GT SCH (08:43)
[2017-07-15] MEDS: Z GUARD REMEDY 2 OZ OINT TP SCH (08:44)
[2017-07-15] MEDS: AMLODIPINE BESYLATE 10 MG TABLET GT SCH (08:44)
[2017-07-15] MEDS: ATENOLOL 25 MG TABLET GT SCH (08:45)
[2017-07-15] MEDS: GLYTROL 1,000 ML BAG GT PRN (08:46)
[2017-07-15] MEDS: ACETAMINOPHEN 650 MG/20.3 ML UDC GT SCH (08:47)
--- NOTE | 2017-07-15 11:43 | NUR ---
RN NOTES: CALLED DR. GOLDSMITH RE: HIGH SUGAR 338 MG/DL. AWAITING FOR CB. Addendum: 07/15/17 at 1531 by CYDNEY LYNN RN ADDENDUM: NO ORDERS MADE RE: HIGH SUGAR. PT FOR DC BACK TO SNF PER DR. GOLDSMITH.
[2017-07-15 12:00] VITALS: BP 147/56
--- NOTE | 2017-07-15 12:00 | NUR ---
RN NOTES: REPORT GIVEN TO ANAIS LACEY FOR CATIA.
--- NOTE | 2017-07-15 12:05 | NUR ---
RN NOTE RECEIVED REPORT FROM CYDNEY. RECEIVED PATIENT ALERT AND ORIENTED, SHE IS ABLE TO MAKE THINGS KNOWN. BREATHING EVEN AND UNLABORED WITH NO DISTRESS NOTED. CURRENTLY ON CONTINUOUS O2 2L VIA NC. GT SITE INTACT AND PATENT. IV SITES INTACT AND PATENT. BED LOCK AND LOW POSITION, WILL CONTINUE TO MONITOR CONTINUITY OF CARE.
[2017-07-15 16:00] VITALS: BP 133/61
[2017-07-15] MEDS: ACETAMINOPHEN W/ CODEINE#3 1 EA TABLET GT PRN (17:10)
--- NOTE | 2017-07-15 17:50 | NUR ---
RN NOTE 60 YEARS OLD FEMALE DISCHARGED TO [facility]. PATIENT IN STABLE CONDITION. ON CONTINUOUS O2 2L VIA NC WITH NO DISTRESS NOTED. COMPLIANT WITH MEDICATIONS, COOPERATIVE WITH TREATMENT PLANS. F/C REMOVED PRIOR TO DISCHARGED. MEDICAL TREATMENT PLANS DEFERRED FOR CONTINUAL MONITORING. EDUCATED PATIENT ABOUT AFTER CARE PLAN AND COPIES PROVIDED. MEDICATIONS RECONCILED, REPORT GIVEN TO ROMELIA AT [facility] FOR CONTINUITY OF CARE. PATIENT SIGNED PAPERWORK DISCHARGE PAPERWORK. WOUND PICTURES TAKEN AND DOCUMENTED IN CHART. PATIENT LEFT THE UNIT VIA AMBULANCE.
== END 2017-07-15 17:31 | DRG 291 ==
LOC: ER 09:15 → ICU 10:49 → TELE1 07-13 17:30
PROVIDERS: ADMIT Internal Medicine Nephrology; ATTEND Internal Medicine Nephrology
PROC: 5A09457 Assistance with Respiratory Ventilation, 24-96 Consecutive Hours, Continuous Positive Airway Pressure (ICD-10-PCS; 2017-07-11)
PROC: 0W9B3ZZ Drainage of Left Pleural Cavity, Percutaneous Approach (ICD-10-PCS; principal; 2017-07-13)
DX: I13.0 Hypertensive heart and chronic kidney disease with heart failure and stage 1 through stage 4 chronic kidney disease, or unspecified chronic kidney disease (principal); J96.21 Acute and chronic respiratory failure with hypoxia; G93.40 Encephalopathy, unspecified; N17.9 Acute kidney failure, unspecified; J90 Pleural effusion, not elsewhere classified; J96.22 Acute and chronic respiratory failure with hypercapnia; I50.31 Acute diastolic (congestive) heart failure; E66.2 Morbid (severe) obesity with alveolar hypoventilation; E78.5 Hyperlipidemia, unspecified; N18.9 Chronic kidney disease, unspecified; Z68.31 Body mass index [BMI] 31.0-31.9, adult; F99 Mental disorder, not otherwise specified; L98.8 Other specified disorders of the skin and subcutaneous tissue; J98.4 Other disorders of lung
CPT/HCPCS: 36415; 36600; 71045-TC; 76942-TC; 80048-TC; 80053-TC; 80076-TC; 80202-TC; 81000-TC; 82962-TC; 83605-TC; 83735-TC; 83880; 84100-TC; 84155-TC; 84484-TC; 85025-TC; 85730-TC; 87040-TC; 87070-TC; 87075-TC; 87081-TC; 87086-TC; 87102-TC; 87116; 87186-TC; 87206; 89051-TC; 92611-TC; 93971-TC; 94760-TC; 94799-TC; A4216; A4606; A6403; J0456; J0696; J1644; J1940; J2543; J2920; J3370; J3490; J7030; J7040; J7050; J7060; Z7610

== ENCOUNTER 2017-07-30 16:25 | Inpatient (IN) | payer MEDICARE, BC, MEDICAID ==
[~2017-07-30 16:25] MED LIST changes: +ACET160L33 GT; +ACET325T53 GT; -ACET650S26 GT; +ALBU2.5V38 IH; +CALC-261 GT; +CRAN3875 GT; +CRAN425C6 GT; -GEMF600T GT; +IPRA0.2S9 IH; +LACT1CAP7 GT; -MULT-659 GT; +MULT9LIQ6 GT; +PRED5TAB48 GT; -SODI1TAB3 GT; -TEMA15CA GT; +TEMA7.5C12 GT; -VENL37.55 GT
[2017-07-30] MEDS ORDERED: ARGI1POW13 GT (17:42)
[2017-07-30] MEDS ORDERED: ALBU2.5V38 IH (17:42)
[2017-07-30] MEDS ORDERED: ASCO-340 GT (17:42)
[2017-07-30] MEDS ORDERED: PANT40TA2 GT (17:42)
[2017-07-30] MEDS ORDERED: ZINC220T GT (17:42)
[2017-07-30] MEDS ORDERED: MELA3TAB PO (17:42)
[2017-07-30] MEDS ORDERED: HYDR-548 GT (17:42)
[2017-07-30] MEDS ORDERED: FUROSEMIDE 40 MG/4 ML VIAL ONE (18:53)
[2017-07-30] MEDS ORDERED: DEXTROSE 50%-WATER 50 ML DISP.SYRIN ONE (18:54)
[2017-07-30] MEDS ORDERED: SODIUM BICARBONATE SYR 50 MEQ/50 ML DISP.SYRIN ONE (18:54)
[2017-07-30] MEDS ORDERED: INSULIN REGULAR, HUMAN 100 UNIT/ML 10 ML VIAL ONE (18:54)
[2017-07-30] MEDS ORDERED: SODIUM BICARBONATE SYR 50 MEQ/50 ML DISP.SYRIN IV ONE (19:00)
[2017-07-30] MEDS ORDERED: ALBUTEROL FS 2.5 MG/3 ML VIAL.NEB NEB ONE (19:00)
[2017-07-30] MEDS ORDERED: DEXTROSE 50%-WATER 50 ML DISP.SYRIN IV ONE (19:00)
[2017-07-30] MEDS ORDERED: INSULIN REGULAR, HUMAN 100 UNIT/ML 10 ML VIAL IV ONE (19:00)
[2017-07-30] MEDS ORDERED: FUROSEMIDE 40 MG/4 ML VIAL IV ONE ×2 (19:00→22:00)
[2017-07-30] MEDS ORDERED: ALBUTEROL FS 2.5 MG/3 ML VIAL.NEB ONE (19:04)
[2017-07-30] MEDS ORDERED: SODIUM POLYSTYRENE SULFONATE 15 G/60 ML BOTTLE NG ONE (19:30)
[2017-07-30] MEDS ORDERED: DEXTROSE 50%-WATER 50 ML DISP.SYRIN IV PRN (22:30)
[2017-07-30] MEDS: BLOOD SUGAR DIAGNOSTIC 1 EACH STRIP IN SCH (23:59)
[2017-07-31] MEDS: BLOOD SUGAR DIAGNOSTIC 1 EACH STRIP IN SCH ×4 (05:22→23:55)
[2017-07-31] MEDS ORDERED: GLUCERNA 1.2 1,000 ML BOTTLE GT SCH (10:30)
[2017-07-31] MEDS ORDERED: MAG HYDROX/AL HYDROX/SIMETH 30 ML UDC GT PRN (10:30)
[2017-07-31] MEDS ORDERED: ONDANSETRON HCL/PF 4 MG/2 ML VIAL IVP PRN (10:30)
[2017-07-31] MEDS ORDERED: BUMETANIDE INJ 4 MG in IV D5W 24 ML IV ONE (10:30)
[2017-07-31] MEDS ORDERED: SODIUM POLYSTYRENE SULFONATE 15 G/60 ML BOTTLE PO ONE (10:30)
[2017-07-31] MEDS ORDERED: ZOLPIDEM TARTRATE 5 MG TABLET PO PRN (10:30)
[2017-07-31] MEDS: ALBUTEROL FS 2.5 MG/3 ML VIAL.NEB IH PRN (10:52)
[2017-07-31] MEDS ORDERED: FEE PK DOSING 1 MIN EA MC ONE (11:08)
[2017-07-31] MEDS: LACTOBACILLUS RHAMNOSUS GG 1 EACH CAP.SPRINK PO SCH ×2 (11:23→17:12)
[2017-07-31] MEDS ORDERED: VANCOMYCIN 500 MG in IV NS 0.9% 100 ML IV SCH (12:00)
[2017-07-31] MEDS: INSULIN REGULAR, HUMAN 100 UNIT/ML 3 ML VIAL SQ PRN ×4 (12:03→23:51)
[2017-07-31] MEDS ORDERED: Z GUARD REMEDY 2 OZ OINT TP PRN (12:30)
[2017-07-31] MEDS: MEROPENEM 500 MG in IV NS 0.9% 50 ML IV SCH ×2 (12:54→23:42)
[2017-07-31] MEDS: Z GUARD REMEDY 2 OZ OINT TP SCH (12:54)
[2017-07-31] MEDS: ALBUTEROL FS 2.5 MG/3 ML VIAL.NEB IH SCH ×2 (14:06→19:50)
[2017-07-31] MEDS: VANCOMYCIN 500 MG in IV NS 0.9% 100 ML IV SCH (16:07)
[2017-07-31] MEDS: methylPREDNISolone SOD SUCC 125 MG/2ML VIAL IV SCH (17:12)
[2017-07-31] MEDS: CLOTRIMAZOLE/BETAMETASONE DIPROPIONATE 15 GM TUBE TP SCH (17:14)
[2017-07-31] MEDS: NEPRO 1,000 ML BOTTLE GT PRN (18:25)
[2017-07-31] MEDS: IPRATROPIUM NEB FS 0.5 MG/2.5 ML AMPUL.NEB NEB SCH (19:50)
[2017-07-31] MEDS: HEPARIN SODIUM, PORCINE 5000 UNITS/1 ML VIAL SQ SCH (21:14)
[2017-07-31] MEDS ORDERED: Medication Not On Formulary EA (Melatonin 6 MG) PO SCH (22:00)
[2017-07-31] MEDS ORDERED: SIMVASTATIN 20 MG TABLET GT SCH (22:00)
[2017-08-01] MEDS: IPRATROPIUM NEB FS 0.5 MG/2.5 ML AMPUL.NEB NEB SCH ×4 (00:47→19:12)
[2017-08-01] MEDS: ALBUTEROL FS 2.5 MG/3 ML VIAL.NEB IH SCH ×4 (00:47→19:13)
[2017-08-01] MEDS: BLOOD SUGAR DIAGNOSTIC 1 EACH STRIP IN SCH ×4 (05:34→23:49)
[2017-08-01] MEDS: INSULIN REGULAR, HUMAN 100 UNIT/ML 3 ML VIAL SQ PRN ×3 (05:44→17:37)
[2017-08-01] MEDS ORDERED: AMLODIPINE BESYLATE 10 MG TABLET GT SCH (09:00)
[2017-08-01] MEDS: ZINC SULFATE 220 MG CAPSULE GT SCH (09:06)
[2017-08-01] MEDS: LACTOBACILLUS RHAMNOSUS GG 1 EACH CAP.SPRINK PO SCH ×2 (09:06→16:48)
[2017-08-01] MEDS: PANTOPRAZOLE 40 MG TABLET.DR PO SCH (09:06)
[2017-08-01] MEDS: ATENOLOL 25 MG TABLET GT SCH (09:06)
[2017-08-01] MEDS: methylPREDNISolone SOD SUCC 125 MG/2ML VIAL IV SCH ×2 (09:07→16:45)
[2017-08-01] MEDS: POLYETHYLENE GLYCOL 3350 17 GM POWD.PACK GT SCH (09:09)
[2017-08-01] MEDS: HEPARIN SODIUM, PORCINE 5000 UNITS/1 ML VIAL SQ SCH ×2 (09:09→20:45)
[2017-08-01] MEDS: CLOTRIMAZOLE/BETAMETASONE DIPROPIONATE 15 GM TUBE TP SCH ×2 (09:11→17:34)
[2017-08-01] MEDS: Z GUARD REMEDY 2 OZ OINT TP SCH (09:11)
[2017-08-01] MEDS: ACETAMINOPHEN 325 MG TABLET PO PRN (09:15)
[2017-08-01] MEDS: MEROPENEM 500 MG in IV NS 0.9% 50 ML IV SCH ×2 (13:05→23:48)
[2017-08-01] MEDS: VANCOMYCIN 500 MG in IV NS 0.9% 100 ML IV SCH (15:28)
[2017-08-01] MEDS: NEPRO 1,000 ML BOTTLE GT PRN (20:46)
[2017-08-02] MEDS: INSULIN REGULAR, HUMAN 100 UNIT/ML 3 ML VIAL SQ PRN ×4 (00:08→18:47)
[2017-08-02] MEDS: ALBUTEROL FS 2.5 MG/3 ML VIAL.NEB IH SCH ×4 (00:54→19:30)
[2017-08-02] MEDS: IPRATROPIUM NEB FS 0.5 MG/2.5 ML AMPUL.NEB NEB SCH ×4 (00:54→19:30)
[2017-08-02] MEDS: BLOOD SUGAR DIAGNOSTIC 1 EACH STRIP IN SCH ×3 (06:01→18:41)
[2017-08-02] MEDS: LACTOBACILLUS RHAMNOSUS GG 1 EACH CAP.SPRINK PO SCH ×2 (08:22→17:00)
[2017-08-02] MEDS: ATENOLOL 25 MG TABLET GT SCH (08:23)
[2017-08-02] MEDS: ZINC SULFATE 220 MG CAPSULE GT SCH (08:23)
[2017-08-02] MEDS: PANTOPRAZOLE 40 MG TABLET.DR PO SCH (08:23)
[2017-08-02] MEDS: POLYETHYLENE GLYCOL 3350 17 GM POWD.PACK GT SCH (08:24)
[2017-08-02] MEDS: methylPREDNISolone SOD SUCC 125 MG/2ML VIAL IV SCH (08:25)
[2017-08-02] MEDS: CLOTRIMAZOLE/BETAMETASONE DIPROPIONATE 15 GM TUBE TP SCH ×2 (08:26→18:41)
[2017-08-02] MEDS: Z GUARD REMEDY 2 OZ OINT TP SCH (08:26)
[2017-08-02] MEDS: MUPIROCIN OINT 2% 22 GM TUBE SCH ×2 (08:32→21:08)
[2017-08-02] MEDS: HEPARIN SODIUM, PORCINE 5000 UNITS/1 ML VIAL SQ SCH ×2 (08:36→21:00)
[2017-08-02] MEDS ORDERED: HYDROCODONE/APAP 5/325MG 1 EACH TABLET PO PRN (10:30)
[2017-08-02] MEDS ORDERED: POTASSIUM CHLORIDE 20 MEQ TAB.PRT.SR PO SCH (11:00)
[2017-08-02] MEDS: MEROPENEM 500 MG in IV NS 0.9% 50 ML IV SCH (11:46)
[2017-08-02] MEDS: POTASSIUM CHLORIDE 20 MEQ POWDER PACKET GT SCH ×2 (12:37→13:36)
[2017-08-02] MEDS ORDERED: NA PHOS,M-B/NA PHOS,DI-BA 1 EA ENEMA RC PRN (14:30)
[2017-08-02] MEDS ORDERED: PEG 3350/NA SULF,BICARB,CL/KCL 4,000 ML BOTTLE PO ONE (14:30)
[2017-08-02] MEDS ORDERED: MAGNESIUM CITRATE 296 ML BOTTLE PO ONE (14:30)
[2017-08-02] MEDS: VANCOMYCIN 500 MG in IV NS 0.9% 100 ML IV SCH (15:19)
[2017-08-02] MEDS: ACETAMINOPHEN 325 MG TABLET PO PRN (18:53)
[2017-08-03] MEDS: MEROPENEM 500 MG in IV NS 0.9% 50 ML IV SCH ×2 (00:47→12:42)
[2017-08-03] MEDS: BLOOD SUGAR DIAGNOSTIC 1 EACH STRIP IN SCH ×4 (00:49→18:16)
[2017-08-03] MEDS: INSULIN REGULAR, HUMAN 100 UNIT/ML 3 ML VIAL SQ PRN ×3 (00:50→18:41)
[2017-08-03] MEDS: ALBUTEROL FS 2.5 MG/3 ML VIAL.NEB IH SCH ×4 (01:30→19:32)
[2017-08-03] MEDS: IPRATROPIUM NEB FS 0.5 MG/2.5 ML AMPUL.NEB NEB SCH ×4 (01:30→19:32)
[2017-08-03] MEDS ORDERED: ANESTHESIA TRAY IN PYXIS 1 EA TRAY MC ONE (06:24)
[2017-08-03] MEDS ORDERED: IPRATROPIUM NEB FS 0.5 MG/2.5 ML AMPUL.NEB ONE (07:54)
[2017-08-03] MEDS ORDERED: ALBUTEROL FS 2.5 MG/3 ML VIAL.NEB ONE (07:54)
[2017-08-03] MEDS: ALBUTEROL FS 2.5 MG/3 ML VIAL.NEB IH PRN (08:00)
[2017-08-03] MEDS ORDERED: methylPREDNISolone SOD SUCC 40 MG/ML VIAL IV SCH (09:00)
[2017-08-03] MEDS: LACTOBACILLUS RHAMNOSUS GG 1 EACH CAP.SPRINK PO SCH ×2 (14:41→16:47)
[2017-08-03] MEDS: PANTOPRAZOLE 40 MG TABLET.DR PO SCH (14:41)
[2017-08-03] MEDS: POLYETHYLENE GLYCOL 3350 17 GM POWD.PACK GT SCH (14:43)
[2017-08-03] MEDS: HEPARIN SODIUM, PORCINE 5000 UNITS/1 ML VIAL SQ SCH (14:43)
[2017-08-03] MEDS: ZINC SULFATE 220 MG CAPSULE GT SCH (14:45)
[2017-08-03] MEDS: MUPIROCIN OINT 2% 22 GM TUBE SCH (14:45)
[2017-08-03] MEDS: ATENOLOL 25 MG TABLET GT SCH (14:45)
[2017-08-03] MEDS: CLOTRIMAZOLE/BETAMETASONE DIPROPIONATE 15 GM TUBE TP SCH ×2 (14:45→16:47)
[2017-08-03] MEDS: Z GUARD REMEDY 2 OZ OINT TP SCH (14:45)
[2017-08-03] MEDS: VANCOMYCIN 500 MG in IV NS 0.9% 100 ML IV SCH (16:47)
== END 2017-08-03 20:32 | disposition short-term general hospital (02) | DRG 871 ==
DX: A41.9 Sepsis, unspecified organism (principal); N17.0 Acute kidney failure with tubular necrosis; J96.21 Acute and chronic respiratory failure with hypoxia; E43 Unspecified severe protein-calorie malnutrition; G92 Toxic encephalopathy; J18.9 Pneumonia, unspecified organism; J90 Pleural effusion, not elsewhere classified; E87.5 Hyperkalemia; E83.39 Other disorders of phosphorus metabolism; K92.2 Gastrointestinal hemorrhage, unspecified; E11.22 Type 2 diabetes mellitus with diabetic chronic kidney disease; J96.22 Acute and chronic respiratory failure with hypercapnia; I13.0 Hypertensive heart and chronic kidney disease with heart failure and stage 1 through stage 4 chronic kidney disease, or unspecified chronic kidney disease; E87.1 Hypo-osmolality and hyponatremia; E66.2 Morbid (severe) obesity with alveolar hypoventilation; J44.0 Chronic obstructive pulmonary disease with (acute) lower respiratory infection; B37.49 Other urogenital candidiasis; N39.0 Urinary tract infection, site not specified; I50.9 Heart failure, unspecified; D50.9 Iron deficiency anemia, unspecified; E78.5 Hyperlipidemia, unspecified; K21.9 Gastro-esophageal reflux disease without esophagitis; K64.8 Other hemorrhoids; L30.4 Erythema intertrigo; N18.9 Chronic kidney disease, unspecified; Z87.891 Personal history of nicotine dependence; L98.8 Other specified disorders of the skin and subcutaneous tissue; Z68.32 Body mass index [BMI] 32.0-32.9, adult; K63.5 Polyp of colon; K57.30 Diverticulosis of large intestine without perforation or abscess without bleeding; K29.60 Other gastritis without bleeding; B96.20 Unspecified Escherichia coli [E. coli] as the cause of diseases classified elsewhere; B95.1 Streptococcus, group B, as the cause of diseases classified elsewhere; Z79.4 Long term (current) use of insulin